=== PATIENT | male | born 1970 | race Caucasian/White ===

== ENCOUNTER 2019-05-15 21:10 | Inpatient (IN) | payer MEDICAID ==
[~2019-05-15] VITALS: Ht 162.6 cm; Wt 80.7 kg
[2019-05-15 21:30] VITALS: BP 129/85
--- NOTE | 2019-05-15 21:54 | NUR ---
AMBULATED TO [facility].
--- NOTE | 2019-05-15 21:54 | NUR ---
PT AMBULATED TO CHAIR D
--- NOTE | 2019-05-15 21:59 | NUR ---
PT BIB SELF C/O FLU LIKE SYMPTOMS X1 WEEK. PT REPORTS BODY ACHES AT 7/10, SINUS PRESSURE, MOIST/PRODUCTIVE COUGH WITH THIN WHITE SPUTUM, AND SUBJECTIVE FEVER. PT CURRENT TEMP 98.0. RR EVEN AND NON-LABORED, BREATH SOUDS CLEAR THROUGHOUT. VSS. PMH:DENIES
--- NOTE | 2019-05-15 22:27 | NUR ---
JULIA MENDES AT CHAIRSIDE
[2019-05-15] MEDS ORDERED: ALBUTEROL SULFATE/IPRATROPIU 3 ML SOL IH ONE (22:30)
[2019-05-15] MEDS ORDERED: predniSONE 20 MG TAB PO ONE (22:30)
--- NOTE | 2019-05-15 22:34 | NUR ---
PT TO X-RAY AT THIS TIME
--- NOTE | 2019-05-15 22:37 | NUR ---
PT RETURNED FORM X-RAY
--- NOTE | 2019-05-15 22:39 | NUR ---
RT CALLED FOR BREATHING TX, RETAIL SALES ASSOCIATE [employer] NOTIFIED THAT NOT ENOUGH PREDNISONE IS LOADED IN OMNICEL
--- NOTE | 2019-05-15 22:56 | NUR ---
PT MOVED TO BED 6
--- NOTE | 2019-05-15 22:59 | NUR ---
PT MOVED TO BED 6, PLACED ON O2 MONITOR AND LODGING FACILITIES ATTENDANT. O2 AT 95% ON ROOM AIR, LODGING FACILITIES ATTENDANT SHOWS SINUS TACH. REPORT GIVEN TO RONY BAUGH.
[2019-05-15] MEDS ORDERED: NACL 0.9% 2,000 ML IV ONE (23:00)
--- NOTE | 2019-05-15 23:29 | NUR ---
INSERTED RAC 20 GAUGE IV. NORMAL SALINE 2,000ML RUNNING WIDE OPEN.
[2019-05-15 23:39] LABS: BASOPHILS # (AUTO) 0.1 K/uL (0.00-0.22); EOSINOPHILS # (AUTO) 0.2 K/uL (0-0.4); EOSINOPHILS % (AUTO) 1.8 % (0.0-4.0); HEMATOCRIT 40.6 % (36-52); HEMOGLOBIN 13.9 g/dL (12.0-18.0); LYMPHOCYTES # (AUTO) 2.4 K/uL (2.0-11.5); LYMPHOCYTES % (AUTO) 24.9 % (20.5-51.1); MEAN CORPUSCULAR HEMOGLOBIN 31 pg (27-31); MEAN CORPUSCULAR HGB CONC 34 g/dL (33-37); MEAN CORPUSCULAR VOLUME 89.3 fL (80-94); MONOCYTES # (AUTO) 1.2 K/uL (0.8-1.0); MONOCYTES % (AUTO) 12.6 % (1.7-9.3); NEUTROPHILS # (AUTO) 5.8 K/uL (1.8-7.7); NEUTROPHILS % (AUTO) 59.7 % (42.2-75.2); PLATELET COUNT (AUTO) 586 K/uL (140-450); RED BLOOD CELL COUNT(AUTO) 4.55 MIL/uL (4.20-6.10); RED CELL DISTRIBUTION WIDTH 12.4 % (11.6-13.7); WHITE BLOOD COUNT (AUTO) 9.7 K/uL (4.8-10.8)
[2019-05-15 23:40] LABS: APPEARANCE,URINE CLEAR (CLEAR); BILIRUBIN,URINE NEGATIVE (NEGATIVE); BLOOD, URINE NEGATIVE (NEGATIVE); COLOR,URINE YELLOW (YELLOW); LEUKOCYTE ESTERASE ,URINE NEGATIVE (NEGATIVE); NITRITE, URINE NEGATIVE (NEGATIVE); UGLUCOSE 2+ (NEGATIVE)
--- NOTE | 2019-05-15 23:42 | NUR ---
ERMD AT BEDSIDE EVALUATING PATIENT.
[2019-05-15] MEDS ORDERED: AZITHROMYCIN 500 MG in DEXTROSE 5% 250 ML IV ONE (23:45)
[2019-05-15] MEDS ORDERED: cefTRIAXone 1,000 MG VIAL ONE (23:53)
[2019-05-15] MEDS ORDERED: AZITHROMYCIN 500 MG INJ VIAL IV ONE (23:53)
[2019-05-15 23:55] LABS: PROTHROMBIN TIME 10.7 secs (10.8-13.4)
[2019-05-16 00:11] LABS: ANION GAP 12.2 (8-16); CARBON DIOXIDE 30.4 mmol/L (21-32); POTASSIUM 3.6 mmol/L (3.5-5.1)
[2019-05-16 00:12] LABS: ALBUMIN 2.4 g/dL (3.4-5.0); TOTAL BILIRUBIN 0.3 mg/dL (0.0-1.0)
[2019-05-16 00:33] LABS: RBC,URINE NONE SEEN /HPF (0-5); WBC,URINE 0-5 /HPF (0-5)
[2019-05-16] MEDS ORDERED: ONDANSETRON 4 MG/2 ML VIAL IM/IVP PRN (01:25)
[2019-05-16] MEDS ORDERED: ALBUTEROL SULFATE/IPRATROPIU 3 ML SOL IH PRN (01:25)
[2019-05-16] MEDS ORDERED: DOCUSATE SODIUM 100 MG GELCAP PO PRN (01:25)
[2019-05-16] MEDS ORDERED: ACETAMINOPHEN 325 MG TAB PO PRN (01:25)
--- NOTE | 2019-05-16 01:38 | NUR ---
DR. HADDAD AT BEDSIDE EVALUATING PATIENT.
[2019-05-16 01:56] LABS: BARBITURATE, URINE NEG. ng/ml (NEG <=200); BENZODIAZEPINE, URINE NEG. ng/mL (NEG <=200); CANNABINOID, URINE NEG. ng/mL (NEG <=50); COCAINE, URINE NEG. ng/mL (NEG <=300); OPIATE, URINE NEG. ng/mL (NEG <=2000); PHENCYCLIDINE SCREEN,URINE NEG. ng/mL (NEG <=25)
[2019-05-16 02:08] LABS: MAGNESIUM 1.8 mg/dL (1.8-2.4); THYROID STIMULATING HORMONE 1.15 uIU/mL (0.34-3.74)
--- NOTE | 2019-05-16 02:55 | NUR ---
Patient will be admitted to care of DR. BLANTON. Admited to MED SURG 113. . Belongings list completed. Report to .
[2019-05-16 03:05] VITALS: BP 123/72
--- NOTE | 2019-05-16 03:05 | NUR ---
RECIEVED PT AAOX4 , FROM ER / WHEELCHAIR , NID , IV SITE INTACT AND PATENT , WALKS TO BED . ADMISSION ASSESSMENT DONE . MRSA SPECIMEN SENT TO LAB . ON SAFETY PRECAUTION PROTOCOL - CALL LIGHT WITHIN REACH . POC DISCUSSED AND VERBALIZE UNDERSTANDING . WILL CONT. TO MONITOR.
[2019-05-16] MEDS: NACL 0.9% 1,000 ML IV SCH ×2 (03:20→19:10)
[2019-05-16] MEDS ORDERED: DEXTROSE 50% 50 ML SYR IVP PRN (04:05)
--- NOTE | 2019-05-16 05:50 | NUR ---
LATEST T 476 - BOUCHRA INFORM - GIVE 10 U HUMALOG SQ NOW ORDERED .WILL CONT. TO MONITOR.
[2019-05-16] MEDS: BLOOD GLUCOSE MONITORING 1 DEV DEV FS SCH ×4 (05:59→20:33)
[2019-05-16] MEDS: INSULIN LISPRO SLIDING SCALE 100 UNITS/ML VIAL SUBQ PRN ×5 (06:03→20:33)
--- NOTE | 2019-05-16 06:03 | NUR ---
HUMALOG 10 U SQ GIVEN . ORDERED. WILL CONT. TO MONITOR.
--- NOTE | 2019-05-16 06:07 | NUR ---
REG.INSULIN SQ STAT GIVEN ORDERED . WILL CONT. TO MONITOR.
[2019-05-16] MEDS ORDERED: INSULIN REGULAR, HUMAN 100 UNIT/ML VIAL IVP SCH (06:30)
[2019-05-16 07:12] LABS: BASOPHILS % (AUTO) 0.2 % (0.0-2.0); HEMATOCRIT 38.1 % (36-52); HEMOGLOBIN 12.9 g/dL (12.0-18.0); LYMPHOCYTES % (AUTO) 10.7 % (20.5-51.1); MEAN CORPUSCULAR HEMOGLOBIN 30 pg (27-31); MEAN CORPUSCULAR HGB CONC 34 g/dL (33-37); MEAN CORPUSCULAR VOLUME 89.7 fL (80-94); MONOCYTES # (AUTO) 0.3 K/uL (0.8-1.0); MONOCYTES % (AUTO) 3.2 % (1.7-9.3); NEUTROPHILS % (AUTO) 85.9 % (42.2-75.2); PLATELET COUNT (AUTO) 534 K/uL (140-450); RED BLOOD CELL COUNT(AUTO) 4.25 MIL/uL (4.20-6.10); RED CELL DISTRIBUTION WIDTH 12.4 % (11.6-13.7); WHITE BLOOD COUNT (AUTO) 9.3 K/uL (4.8-10.8)
[2019-05-16 07:21] LABS: CHOL/HDL RATIO 3.8 (1-4.5); MAGNESIUM 1.8 mg/dL (1.8-2.4); PHOSPHORUS 3.6 mg/dL (2.5-4.9)
--- NOTE | 2019-05-16 07:25 | NUR ---
RECEIVED BEDSIDE REPORT FROM NIGHTSHIFT NURSE. PT ASLEEP IN BED UPON ARRIVAL. RESPIRATIONS EVEN AND UNLABORED WITH NO SOB OR RESPIRATORY DISTRESS. ABLE TO MAKE NEEDS KNOWN. SKIN WARM AND DRY TO TOUCH. IV SITE IN L HAND 20G IS CLEAN, DRY, AND INTACT. SAFETY MEASURES IN PLACE. WILL CONTINUE TO MONITOR.
--- NOTE | 2019-05-16 07:25 | NUR ---
ENDORSE TO AM SHIFT . PT - STABLE - W/ LATEST HGT 43O.
[2019-05-16 08:00] VITALS: BP 122/76
--- NOTE | 2019-05-16 08:40 | NUR ---
PATIENT HAS BEEN SCREENED AND CATEGORIZED HIGH NUTRITION RISK. PATIENT WILL BE SEEN WITHIN 1-2 DAYS OF ADMISSION. 05/16/19-05/17/[address]
[2019-05-16] MEDS: LACTOBACILLUS RHAMNOSUS GG 1 EACH CAP PO SCH (08:44)
[2019-05-16] MEDS: OSELTAMIVIR PHOSPHATE 75 MG CAP PO SCH ×2 (08:44→20:29)
[2019-05-16] MEDS: NICOTINE TRANSD SYS 14 MG/24 HR PATCH TD SCH (08:46)
--- NOTE | 2019-05-16 08:46 | NUR ---
ADMINISTERED SCHED MED PRESCRIBED PER MD ORDER. PT TOLERATED WELL. MEDICATION EDUCATION PERFORMED. PT REFUSED NICOTINE PATCH. PT STATED HE WOULD RATHER "BLOW SMOKE" THAN USE NICOTINE PATCH. EDUCATED PT ON PURPOSE OF NICOTINE PATCH. PT VERBALIZED UNDERSTANDING BUT STILL DID NOT WANT IT. SAFETY MEASURES IN PLACE. WILL CONTINUE TO MONITOR.
[2019-05-16 09:14] LABS: ANION GAP 17.3 (8-16); CARBON DIOXIDE 24.4 mmol/L (21-32); CREATININE 1.2 mg/dL (0.7-1.3); POTASSIUM 4.7 mmol/L (3.5-5.1)
--- NOTE | 2019-05-16 09:45 | NUR ---
RECIEVED CALL FROM LAB WITH A CRITICAL RESULT. PT BLOOD GLUCOSE IS 481. MADE AWARE AND CARRIED OUT ORDERS Addendum: 05/16/19 at 1055 by Yohana Yancey RN RECEIVED CALL AT [phone] NOT AT [phone]
--- NOTE | 2019-05-16 10:43 | NUR ---
ADMINISTERED SCHED MED PRESCRIBED PER MD ORDER. PT TOLERATED WELL. MEDICATION EDUCATION PERFORMED. PT VERBALIZED UNDERSTANDING. SAFETY MEASURES IN PLACE. WILL CONTINUE TO MONITOR.
--- NOTE | 2019-05-16 12:30 | NUR ---
PT BLOOD SUGAR WAS 481. DR MADE AWARE AND GAVE ORDER TO GIVE 15 UNITS OF INSULIN. PT TOLERATED WELL. WILL CONTINUE TO MONITOR
--- NOTE | 2019-05-16 14:45 | NUR ---
PT REQUESTED TO TAKE A SHOWER. PT IV SITE COVERED WITH DRESSING. GATHERED SHOWER SUPPLIES FOR PT. ASSISTED PT INTO SHOWER. PT TOLERATED WELL. ASSISTED PT BACK INTO BED, REMOVED DRESSING PROTECTION OVER IV SITE, AND RECONNECTED PT TO IV FLUIDS. PT TOLERATED WELL. SAFETY MEASURES IN PLACE. WILL CONTINUE TO MONITOR.
[2019-05-16 16:00] VITALS: BP 125/69
--- NOTE | 2019-05-16 16:10 | NUR ---
05/16/19 RD INITIAL ASSESSMENT COMPLETED PLEASE REFER TO NUTRITION ASSESSMENT UNDER CARE ACTIVITY FOR ESTIMATED NUTRITIONAL NEEDS. 1. CONTINUE CCHO 60 GM DIET TOLERATED 2. RD PROVIDED DM MANAGEMENT NUTRITION EDUCATION 3. RD TO FOLLOW-UP 3-5 DAYS, MODERATE RISK KRAIG RIGGS RD
--- NOTE | 2019-05-16 16:30 | NUR ---
PT BLOOD SUGAR WAS 175. PT WILL RECEIVE 3 UNITS OF INSULIN. SAFETY MEASURES IN PLACE. WILL CONTINUE TO MONITOR
--- NOTE | 2019-05-16 16:32 | NUR ---
Colorist Dyer Note: Basic Screen: Yes High Risk DC Screen Brownlee: NATHANIEL Sanchez Pre-Admission Living Arrangements: Lives with Other Prior ADL Independent Current Home Health Name/Tel: N/A Current DME/02 Name/Tel: N/A Current Hospice Name/Tel: N/A Current Dialysis Name/Tel: N/A Advance Directive No - REFUSED Physician Orders for Life Sustaining Treatment Form No Patient/Family Have Educational Needs No Information Taught: Advance Directive Person Taught: Patient Teaching Tools: Verbal Factors Affecting Learning: None Participation Level: Refused Evaluation: Verbalizes Understanding Discipline: Case Mgt/Social Svcs Tentative Discharge Plan/Destination: No Needs Identified Will require assistance post discharge: No Referred to [facility] Laboratory Supervisor: No Tentative Discharge Plan Summary: Patient is a 49-year-old male admitted for pneumonia and influenza. Patient has no significant PMHX. Patient was admitted from home where he lives with his aunt. 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 SW offered substance abuse resources but patient refused. Patient's tentative plan after discharge is to return home. No further needs identified. Signature: NIRALI Wood Date: May 16, 2019 Time: 16:31
--- NOTE | 2019-05-16 17:45 | NUR ---
PT ASLEEP IN BED. RESPONSIVE TO VERBAL AND TACTILE STIMULI. RESPIRATIONS EVEN AND UNLABORED WITH NO SOB OR RESPIRATORY DISTRESS. ABLE TO MAKE NEEDS KNOWN. SKIN WARM AND DRY TO TOUCH. SAFETY MEASURES IN PLACE. WILL CONTINUE TO MONITOR.
--- NOTE | 2019-05-16 18:05 | NUR ---
PT RESTING IN BED. RESPIRATIONS EVEN AND UNLABORED WITH NO SOB OR RESPIRATORY DISTRESS. ABLE TO MAKE NEEDS KNOWN. SKIN WARM AND DRY TO TOUCH. SAFETY MEASURES IN PLACE. WILL CONTINUE TO MONITOR.
--- NOTE | 2019-05-16 19:23 | NUR ---
GAVE BEDSIDE REPORT FROM NIGHTSHIFT NURSE. PT RESTING IN BED. RESPIRATIONS EVEN AND UNLABORED WITH NO SOB OR RESPIRATORY DISTRESS. ABLE TO MAKE NEEDS KNOWN. SKIN WARM AND DRY TO TOUCH. SAFETY MEASURES IN PLACE. PT IS STABLE.
--- NOTE | 2019-05-16 19:25 | NUR ---
RECEIVED PT ON BED, AAOX4, DENIES ANY PAIN, NO SOB NOTED, IVF INFUSING WELL, PLAN OF CARE DISCUSSED, MAINTAINED ON DROPLET PRECAUTION, CALL LIGHT WITHIN REACH.
[2019-05-16] MEDS ORDERED: VANCOMYCIN PER PHARMACY MC PRN (20:10)
[2019-05-16] MEDS ORDERED: VANCOMYCIN 1,000 MG VIAL ONE (20:56)
[2019-05-16] MEDS ORDERED: VANCOMYCIN 1GM/DEXT 5% PREMIX 200 ML IV SCH (21:00)
[2019-05-16] MEDS ORDERED: AZITHROMYCIN 250 MG TAB PO SCH (21:00)
[2019-05-16] MEDS ORDERED: INSULIN LANTUS 100 UNITS/ML 10 ML VIAL SUBQ SCH (21:00)
--- NOTE | 2019-05-16 21:00 | NUR ---
BLOOD SUGAR CHECKED WITH 299 RESULT, COVERAGE GIVEN, DUE TAMIFLU ADMINISTERED, ALL NEEDS ATTENDED.
--- NOTE | 2019-05-16 23:30 | NUR ---
PT EASILY AROUSABLE, VITAL SIGNS STABLE, DENIES ANY PAIN, NO SOB NOTED, OCCASIONAL COUGH NOTED, PROVIDED SPECIMEN CUP TO COLLECT SPUTUM FOR TEST, IVF INFUSING WELL, CONTINUE TO MONITOR CLOSELY.
[2019-05-17] VITALS: BP 114/80
--- NOTE | 2019-05-17 04:00 | NUR ---
SEEN PT SLEEPING, NO SIGNS OF DISTRESS, VISIBLE CHEST RISE AND FALL, MONITORED CLOSELY.
[2019-05-17] MEDS: INSULIN LISPRO SLIDING SCALE 100 UNITS/ML VIAL SUBQ PRN ×4 (05:45→21:08)
--- NOTE | 2019-05-17 05:45 | NUR ---
PT ABLE TO EXPECTORATE SPUTUM BT MIXED WITH SALIVA, PROVIDED ANOTHER CONTAINER FOR SPUTUM COLLECTION, BLOOD SUGAR CHECKED WITH 171 RESULT, COVERAGE GIVEN, PT IN STABLE CONDITION THE WHOLE SHIFT, MONITORED CLOSELY.
[2019-05-17] MEDS ORDERED: INFLUENZA VACCINE QUAD 0.5 ML SYR IMVAC PRN (05:50)
[2019-05-17] MEDS: BLOOD GLUCOSE MONITORING 1 DEV DEV FS SCH ×4 (06:32→21:25)
--- NOTE | 2019-05-17 07:16 | NUR ---
PT AWAKE, NO SIGNS OF DISTRESS, REPORT GIVEN TO LUPIS DOVER FOR CONTINUITY OF CARE.
--- NOTE | 2019-05-17 07:17 | NUR ---
RECEIVED REPORT FROM NIGHT NURSE. PT IN STABLE CONDITION, AWAKE, AAOX4, NO DISTRESS NOTED, DENIES PAIN. RESPIRATIONS EVEN AND UNLABORED ON ROOM AIR. IV IN PLACE R AC 20G PATENT AND ASYMPTOMATIC INFUSING PER ORDER. SKIN INTACT. PT IS AMBULATORY. REGULAR DIET. SAFETY MEASURES IN PLACE. CALL LIGHT WITHIN REACH, BED IN LOW POSITION. WILL CONTINUE TO MONITOR.
[2019-05-17 07:33] LABS: CREATININE 0.9 mg/dL (0.6-1.3); POTASSIUM 3.9 mmol/L (3.5-5.1)
[2019-05-17 07:35] LABS: ANION GAP 10.6 (8-16); CARBON DIOXIDE 29.3 mmol/L (21-32)
[2019-05-17 07:36] LABS: MAGNESIUM 1.7 mg/dL (1.8-2.4); PHOSPHORUS 3.7 mg/dL (2.5-4.9)
[2019-05-17 07:40] LABS: BASOPHILS # (AUTO) 0.1 K/uL (0.00-0.22); BASOPHILS % (AUTO) 0.9 % (0.0-2.0); EOSINOPHILS # (AUTO) 0.2 K/uL (0-0.4); EOSINOPHILS % (AUTO) 2.2 % (0.0-4.0); HEMATOCRIT 39.5 % (36-52); HEMOGLOBIN 13.6 g/dL (12.0-18.0); LYMPHOCYTES # (AUTO) 3.1 K/uL (2.0-11.5); LYMPHOCYTES % (AUTO) 31.5 % (20.5-51.1); MEAN CORPUSCULAR HEMOGLOBIN 31 pg (27-31); MEAN CORPUSCULAR HGB CONC 34 g/dL (33-37); MEAN CORPUSCULAR VOLUME 89.5 fL (80-94); MONOCYTES % (AUTO) 10.3 % (1.7-9.3); NEUTROPHILS # (AUTO) 5.4 K/uL (1.8-7.7); NEUTROPHILS % (AUTO) 55.1 % (42.2-75.2); PLATELET COUNT (AUTO) 530 K/uL (140-450); RED BLOOD CELL COUNT(AUTO) 4.42 MIL/uL (4.20-6.10); RED CELL DISTRIBUTION WIDTH 12.5 % (11.6-13.7); WHITE BLOOD COUNT (AUTO) 9.8 K/uL (4.8-10.8)
[2019-05-17 08:00] VITALS: BP 119/82
[2019-05-17] MEDS: VANCOMYCIN 1,000 MG in NACL 0.9% 250 ML IV SCH ×2 (08:57→20:30)
[2019-05-17] MEDS: LACTOBACILLUS RHAMNOSUS GG 1 EACH CAP PO SCH (08:57)
[2019-05-17] MEDS: OSELTAMIVIR PHOSPHATE 75 MG CAP PO SCH ×2 (08:57→20:30)
[2019-05-17] MEDS: NICOTINE TRANSD SYS 14 MG/24 HR PATCH TD SCH (08:59)
--- NOTE | 2019-05-17 09:30 | NUR ---
MEDICATIONS ADMINISTERED PER ORDER. PT TOLERATED WELL, NO DISTRESS NOTED. WILL CONTINUE TO MONITOR.
--- NOTE | 2019-05-17 10:00 | NUR ---
GAVE REPORT TO RAY FOR CONTINUITY OF CARE.
--- NOTE | 2019-05-17 10:07 | NUR ---
RECEIVED BEDSIDE REPORT FROM MYRA LARA AWAKE IN BED PT APPEARS STABLE AND IN NO APPARENT DISTRESS. ALL SAFETY MEASURES ARE IN PLACE. PT IV INFILTRATED WILL START A NEW IV. INTRODUCED MYSELF TO THE PATIENT AND INFORMED HIM I WILL BE HERE TO ANSWER ANY QUESTIONS AND HELP HIM WITH ANY OF HIS NEEDS.
--- NOTE | 2019-05-17 11:16 | NUR ---
DC PLANN[age] YRS OLD MALE PATIENT WAS ADMITTED FROM HOME WITH A DX OF PNEUMONIA AND INFLUENZA B+ . CXRAY SHOWED RT UPPER LOBE PNEUMONIA , INFLUENZA A(-) ,STARTED TAMIFLU 75MG BID , ROCEPHIN IV AND INITIATE RT PROTOCOL . DC PLAN TO GO HOME WHEN STABLE CALLED GURDEEP WHEELER AT [facility] [phone] STATED WE ARE CONTRACTED NO NEED TO SEND THE POST STABILIZATION FORM AND AUTHORIZED FOR PT TO STAY AT [facility]
[2019-05-17] MEDS: NACL 0.9% 1,000 ML IV SCH ×2 (11:50→21:02)
--- NOTE | 2019-05-17 12:58 | NUR ---
fingerstick glucose 365 administered 12 units humalog per protocol subq right upper arm. educated pt on medication and sideeffects informed pt about signs and symptoms of hypoglycemia. will continue to monitor
--- NOTE | 2019-05-17 13:46 | NUR ---
FREQUENT ROUNDING ON PT PT APPEARS STABLE AND IN NO APPARENT DISTRESS. ALL SAFETY MEASURES ARE IN PLACE
--- NOTE | 2019-05-17 15:43 | NUR ---
FREQUENT ROUNDING ON PT PT APPEARS STABLE AND IN NO APPARENT DISTRESS. ALL SAFETY MEASURES ARE IN PLACE
[2019-05-17 16:45] VITALS: BP 119/74
[2019-05-17] MEDS ORDERED: metFORMIN 500 MG TAB PO SCH (17:23)
--- NOTE | 2019-05-17 17:43 | NUR ---
FREQUENT ROUNDING ON PT PT AWAKE IN BED PT APPEARS STABLE AND IN NO APPARENT DISTRESS. ALL SAFETY MEASURES ARE IN PLACE.
--- NOTE | 2019-05-17 19:27 | NUR ---
RECEIVED PATIENT IN STABLE CONDITION FROM AM SHIFT FOR CONTINUITY OF CARE. TELE PATIENT. IS AT BEDSIDE. RESPIRATIONS EVEN, UNLABORED. DOUBLE LUMEN PICC TO RIGHT UPPER ARM INTACT, IV FLUIDS INFUSING WELL. NO C/O PAIN. NO S/SX ACUTE DISTRESS. ISOLATION PRECAUTIONS OBSERVED. CALL LIGHT WITHIN REACH. WILL CONTINUE TO MONITOR. Addendum: 05/17/19 at 1934 by Naz Alvarez RN IV SITE TO LEFT FOREARM 22G, NOT PICC.
--- NOTE | 2019-05-17 19:28 | NUR ---
ENDORSED PT TO PM RN PT AWAKE IN BED IVF INFUSING IV SITE PATENT AND SHOWS NO SIGNS OF INFILTRATION OR INFLAMMATION. ALL SAFETY MEASURES ARE IN PLACE .
--- NOTE | 2019-05-17 21:25 | NUR ---
IV SITE TO LEFT FOREARM INFILTRATED. REMOVED IV WITH CANNULA INTACT. NO BLEEDING NOTED. ELEVATED EXTREMITY FOR COMFORT. NEW IV STARTED IN RIGHT HAND 24G USING ASEPTIC TECHNIQUE WITH GOOD BLOOD RETURN. NO C/O PAIN. NO S/SX ACUTE DISTRESS NOTED. CALL LIGHT WITHIN REACH. WILL CONTINUE TO MONITOR.
--- NOTE | 2019-05-17 23:10 | NUR ---
PATIENT CONTINUES IN STABLE CONDITION. NO C/O PAIN. NO S/SX ACUTE DISTRESS. DUE MEDS GIVEN. CALL LIGHT WITHIN REACH. WILL CONTINUE TO MONITOR.
[2019-05-18] VITALS: BP 110/71
--- NOTE | 2019-05-18 01:00 | NUR ---
ASLEEP AND IN STABLE CONDITION. NO C/O PAIN. NO S/SX ACUTE DISTRESS. CALL LIGHT WITHIN REACH. WILL CONTINUE TO MONITOR.
--- NOTE | 2019-05-18 03:06 | NUR ---
MADE ROUNDS. PATIENT ASLEEP AND IN STABLE CONDITION. NO C/O PAIN. NO S/SX ACUTE DISTRESS. CALL LIGHT WITHIN REACH. WILL CONTINUE TO MONITOR.
--- NOTE | 2019-05-18 05:21 | NUR ---
PATIENT ASLEEP AND IN STABLE CONDITION. NO C/O PAIN. NO S/SX ACUTE DISTRESS. ISOLATION PRECAUTIONS OBSERVED BY ALL STAFF. CALL LIGHT WITHIN REACH. WILL CONTINUE TO MONITOR.
[2019-05-18] MEDS: INSULIN LISPRO SLIDING SCALE 100 UNITS/ML VIAL SUBQ PRN ×2 (06:34→12:10)
[2019-05-18] MEDS: BLOOD GLUCOSE MONITORING 1 DEV DEV FS SCH ×2 (06:35→11:35)
--- NOTE | 2019-05-18 07:15 | NUR ---
ENDORSED PATIENT IN STABLE CONDITION TO AM SHIFT FOR CONTINUITY OF CARE.
--- NOTE | 2019-05-18 07:20 | NUR ---
RECEIVED PATIENT FROM MANAGER STRATEGY & ACCOUNT NURSEALLEGRA FOR CONTINUITY OF CARE. PATIENT IS AAOX4. RESPIRATIONS EVEN AND UNLABORED, ROOM AIR. INTERMITTENT NONPRODUCTIVE COUGH. ON DROPLET PRECAUTIONS. VISIBLE CHEST RISE NOTED. DENIES CHEST PAIN. SKIN WARM, DRY, AND INTACT. RIGHT HAND G24 RUNNING NS AT 60 ML/HR. IV FLUSHING WELL. PATENT AND INTACT. UNIVERSAL FALL PRECAUTION. BED IN LOW POSITION. CALL LIGHT IS WITHIN REACH. WILL CONTINUE TO MONITOR
[2019-05-18 07:51] LABS: MAGNESIUM 1.8 mg/dL (1.8-2.4); PHOSPHORUS 4.4 mg/dL (2.5-4.9)
[2019-05-18 08:00] VITALS: BP 117/81
[2019-05-18] MEDS ORDERED: metFORMIN 500 MG TAB PO SCH (08:00)
[2019-05-18 08:29] LABS: BASOPHILS # (AUTO) 0.2 K/uL (0.00-0.22); BASOPHILS % (AUTO) 2.5 % (0.0-2.0); EOSINOPHILS # (AUTO) 0.2 K/uL (0-0.4); EOSINOPHILS % (AUTO) 2.4 % (0.0-4.0); HEMOGLOBIN 15.2 g/dL (12.0-18.0); LYMPHOCYTES # (AUTO) 3.1 K/uL (2.0-11.5); LYMPHOCYTES % (AUTO) 31.7 % (20.5-51.1); MEAN CORPUSCULAR HEMOGLOBIN 30 pg (27-31); MEAN CORPUSCULAR HGB CONC 34 g/dL (33-37); MEAN CORPUSCULAR VOLUME 89.6 fL (80-94); MONOCYTES # (AUTO) 1.1 K/uL (0.8-1.0); MONOCYTES % (AUTO) 11.2 % (1.7-9.3); NEUTROPHILS # (AUTO) 5.1 K/uL (1.8-7.7); NEUTROPHILS % (AUTO) 52.2 % (42.2-75.2); PLATELET COUNT (AUTO) 571 K/uL (140-450); RED BLOOD CELL COUNT(AUTO) 5.02 MIL/uL (4.20-6.10); RED CELL DISTRIBUTION WIDTH 12.6 % (11.6-13.7); WHITE BLOOD COUNT (AUTO) 9.8 K/uL (4.8-10.8)
[2019-05-18 08:47] LABS: ANION GAP 9.9 (8-16); CREATININE 1.1 mg/dL (0.6-1.3); POTASSIUM 3.9 mmol/L (3.5-5.1)
[2019-05-18] MEDS: NICOTINE TRANSD SYS 14 MG/24 HR PATCH TD SCH (09:00)
--- NOTE | 2019-05-18 09:36 | NUR ---
GIVEN MORNING MEDICATIONS PO. VANCOMYCIN VIA IVPB. CHANGED NS BAG. EXPLAINED TO PATIENT MEDS. PATIENT VERBALIZED UNDERSTANDING. BED IN LOW POSITION. CALL LIGHT IS WITHIN REACH
[2019-05-18] MEDS: OSELTAMIVIR PHOSPHATE 75 MG CAP PO SCH (09:37)
[2019-05-18] MEDS: LACTOBACILLUS RHAMNOSUS GG 1 EACH CAP PO SCH (09:37)
[2019-05-18] MEDS: VANCOMYCIN 1,000 MG in NACL 0.9% 250 ML IV SCH (09:38)
--- NOTE | 2019-05-18 10:20 | NUR ---
MADE ROUNDS. PATIENT IS AWAKE. WATCHING TV. PATIENT DENIES PAIN, CHEST PAIN. INTERMITTENT NONPRODUCTIVE COUGH NOTED. BED IN LOW POSITION. CALL LIGHT IS WITHIN REACH. DROPLET PRECAUTION IN PLACE
[2019-05-18] MEDS ORDERED: LACT10CA PO (10:32)
[2019-05-18] MEDS ORDERED: TAM75 PO (10:32)
[2019-05-18] MEDS ORDERED: LEVO750T2 PO (10:32)
[2019-05-18] MEDS ORDERED: PSYL0.5216 PO (10:32)
[2019-05-18] MEDS ORDERED: METF500T PO (10:32)
[2019-05-18] MEDS ORDERED: GLUC-805 FS (10:32)
[2019-05-18] MEDS ORDERED: DOCU-299 PO (10:32)
[2019-05-18] MEDS ORDERED: BLOO1EAC40 MC (10:34)
[2019-05-18] MEDS ORDERED: LANC-947 MC (10:34)
--- NOTE | 2019-05-18 11:35 | NUR ---
BLOOD GLUCOSE CHECK: 213. WILL GIVE INSULIN
--- NOTE | 2019-05-18 11:58 | NUR ---
SPOKED WITH DR. FRANCIS TO ORDER GLUCOMETER BECAUSE TEST STRIPS IS ONLY ORDERED. DR. FRANCIS WILL ORDER IT.
--- NOTE | 2019-05-18 12:00 | NUR ---
EDUCATED PATIENT HOW TO CHECK BLOOD SUGAR. DEMONSTRATED HOW TO INSERT THE STRIP TO THE MACHINE, CLEAN THE FINGER, AND HOW TO POKE PATIENT WITH LANCET. PATIENT RETURNED DEMONSTRATION WELL.
--- NOTE | 2019-05-18 12:13 | NUR ---
GIVEN 5 UNITS OF INSULIN FOR BLOOD GLUCOSE 213. INJECTED IN THE RIGHT UPPER ARM. EXPLAINED TO PATIENT MED. PATIENT VERBALIZED UNDERSTANDING. PATIENT TOLERATED WELL.
[2019-05-18 12:29] VITALS: BP 117/81
--- NOTE | 2019-05-18 12:41 | NUR ---
GIVEN FLU SHOT IN THE LEFT UPPER ARM. EXPLAINED TO PATIENT THE FLU SHOT. PATIENT VERBALIZED UNDERSTANDING. PATIENT TOLERATED WELL. BED IN LOW. CALL LIGHT IS WITHIN REACH. WILL CONTINUE TO MONITOR.
--- NOTE | 2019-05-18 13:05 | NUR ---
GIVEN DISCHARGE INSTRUCTIONS. EXPLAINED PATIENT THAT HE NEEDS TO APPLICATION INTEGRATION ENGINEER HIS PRESCRIBED MEDS AT THE [facility] HE PREFERRED. EDUCATED THAT HE NEEDS TO MAKE APPOINTMENT TO [facility]. PATIENT VERBALIZED UNDERSTANDING. PATIENT SIGNED DISCHARGED PAPER WORKS.
--- NOTE | 2019-05-18 13:08 | NUR ---
DISCONTINUED IV. MINIMAL BLEEDING. SECURED WITH 2X2 AND TAPE. REMOVED ID BAND.
--- NOTE | 2019-05-18 13:10 | NUR ---
DISCHARGED PATIENT ON FOOT ACCOMPANIED BY . PATIENT IS IN STABLE CONDITION. DENIES PAIN, CHEST PAIN, FEVER. BELONGINGS CHECKED.
== END 2019-05-18 13:00 | disposition home or self-care (01) | DRG 720 ==
LOC: MED 21:10 → MTU 05-16 01:22
PROVIDERS: ADMIT General Practice; ATTEND General Practice
DX: A41.9 Sepsis, unspecified organism (principal); E43 Unspecified severe protein-calorie malnutrition; J10.08 Influenza due to other identified influenza virus with other specified pneumonia; J15.9 Unspecified bacterial pneumonia; M94.0 Chondrocostal junction syndrome [Tietze]; F17.210 Nicotine dependence, cigarettes, uncomplicated; E11.9 Type 2 diabetes mellitus without complications; E66.9 Obesity, unspecified; F15.10 Other stimulant abuse, uncomplicated; Z68.30 Body mass index [BMI] 30.0-30.9, adult; Z90.49 Acquired absence of other specified parts of digestive tract; Z71.51 Drug abuse counseling and surveillance of drug abuser; Z71.6 Tobacco abuse counseling; Z23 Encounter for immunization
CPT/HCPCS: 36415; 71045; 80048; 80053; 80202; 80305; 81001; 82948; 83036; 83605; 83735; 83880; 84100; 84134; 84443; 84484; 85025; 85610; 87040; 87081; 87086; 87804; 93005; 94640; 96361; 96365; 96367; 99285; J0456; J0696; J1815; J3370; J7030; J7060; J7512; J7620; Q0092

== ENCOUNTER 2021-05-08 15:50 | Emergency (ER) | payer MEDICAID ==
[~2021-05-08] VITALS: Ht 165.1 cm; Wt 86.2 kg
[~2021-05-08 15:50] MED LIST: BLOO1EAC40 MC; DOCU-299 PO; GLUC-805 FS; LACT10CA PO; LANC-947 MC; LEVO750T2 PO; METF500T PO; PSYL0.5216 PO; TAM75 PO
[2021-05-08 16:13] VITALS: BP 119/71
--- NOTE | 2021-05-08 16:43 | NUR ---
C/O DIABETIC WOUND RIGHT FOOT X 4 DAYS. BLOOD SUGAR 338 AT THIS TIME. PMH: DM
[2021-05-08] MEDS ORDERED: KETOROLAC 60 MG/2 ML VIAL IM ONE (16:55)
[2021-05-08] MEDS ORDERED: IBUP-2213 PO (17:00)
[2021-05-08] MEDS ORDERED: CEPH-588 PO (17:00)
[2021-05-08] MEDS ORDERED: ACET-8386 PO (17:00)
--- NOTE | 2021-05-08 17:41 | NUR ---
Patient discharged with v/s stable. Written and verbal after care instructions given and explained. Patient alert, oriented and verbalized understanding of instructions. Ambulatory with steady gait. All questions addressed prior to discharge. ID band removed. Patient advised to follow up with PMD. Rx of HYDROCODONE/ACETAMINOPHEN, CEPHALEXIN,IBUPROFEN given. Opportunity to ask questions provided and answered.
== END 2021-05-08 17:41 | disposition home or self-care (01) ==
LOC: MED 15:50
DX: L03.115 Cellulitis of right lower limb (principal)
CPT/HCPCS: 96372; 99283; J1885

== ENCOUNTER 2021-05-15 17:13 | Inpatient (IN) | payer MEDICAID, SELFPAY ==
[~2021-05-15] VITALS: Ht 165.1 cm; Wt 86.2 kg
[~2021-05-15 17:13] MED LIST changes: +ACET-8386 PO; +CEPH-588 PO; +IBUP-2213 PO
[2021-05-15 18:16] VITALS: BP 125/88
[2021-05-15] MEDS ORDERED: NACL 0.9% 1,000 ML IV ONE (18:35)
--- NOTE | 2021-05-15 19:00 | NUR ---
51/M FOR RIGHT FOOT PAIN X10 DAYS. STATES HE HAD A CUT ON HIS FOOT AND STATES "ITS INFECTED" REPORTS BEING SEEN HERE ONE WEEK AGO FOR SAME SYMPTOMS BUT STATES NO IMPROVEMENT. 10/24 PAIN. WOUND NOTED ON RT FOOT BETWEEN 4TH AND 5TH TOES. MEDHX: DM ALLERGIES: NKA
[2021-05-15] MEDS ORDERED: CLINDAMYCIN 600 MG in DEXTROSE 5% 50 ML IV ONE (19:10)
[2021-05-15 19:18] LABS: BASOPHILS # (AUTO) 0.1 K/uL (0.00-0.22); BASOPHILS % (AUTO) 1.2 % (0.0-2.0); EOSINOPHILS # (AUTO) 0.1 K/uL (0-0.4); EOSINOPHILS % (AUTO) 1.6 % (0.0-4.0); HEMATOCRIT 39.9 % (36-52); HEMOGLOBIN 13.8 g/dL (12.0-18.0); LYMPHOCYTES # (AUTO) 1.8 K/uL (2.0-11.5); LYMPHOCYTES % (AUTO) 29.5 % (20.5-51.1); MEAN CORPUSCULAR HEMOGLOBIN 32 pg (27-31); MEAN CORPUSCULAR HGB CONC 35 g/dL (33-37); MEAN CORPUSCULAR VOLUME 91.2 fL (80-94); MONOCYTES # (AUTO) 0.6 K/uL (0.8-1.0); MONOCYTES % (AUTO) 9.2 % (1.7-9.3); NEUTROPHILS # (AUTO) 3.6 K/uL (1.8-7.7); NEUTROPHILS % (AUTO) 58.5 % (42.2-75.2); PLATELET COUNT (AUTO) 385 K/uL (140-450); RED BLOOD CELL COUNT(AUTO) 4.37 MIL/uL (4.20-6.10); RED CELL DISTRIBUTION WIDTH 13.1 % (11.6-13.7); WHITE BLOOD COUNT (AUTO) 6.2 K/uL (4.8-10.8)
[2021-05-15] MEDS ORDERED: CLINDAMYCIN 600 MG/4 ML VIAL ONE (19:25)
--- NOTE | 2021-05-15 19:35 | NUR ---
COMPLAIED OF PAIN , PA NOTED WITH ORDER.
[2021-05-15] MEDS ORDERED: KETOROLAC 30 MG/ML VIAL IVP ONE (19:40)
[2021-05-15 20:11] LABS: ALBUMIN 2.5 g/dL (3.4-5.0); ANION GAP 11.3 (8-16); CARBON DIOXIDE 26.8 mmol/L (21-32); CREATININE 1.2 mg/dL (0.6-1.3); POTASSIUM 4.1 mmol/L (3.5-5.1); TOTAL BILIRUBIN 0.2 mg/dL (0.0-1.0)
[2021-05-15] MEDS ORDERED: INSULIN REGULAR, HUMAN 100 UNIT/ML VIAL SUBQ ONE (20:20)
[2021-05-15] MEDS ORDERED: metroNIDAZOLE 500 MG/NS PREMIX 100 ML IV ONE (20:20)
[2021-05-15 20:34] LABS: APPEARANCE,URINE CLEAR (CLEAR); BILIRUBIN,URINE NEGATIVE (NEGATIVE); BLOOD, URINE NEGATIVE (NEGATIVE); COLOR,URINE YELLOW (YELLOW); LEUKOCYTE ESTERASE ,URINE NEGATIVE (NEGATIVE); NITRITE, URINE NEGATIVE (NEGATIVE); UGLUCOSE 3+ (NEGATIVE)
[2021-05-15] MEDS ORDERED: cefTRIAXone 1,000 MG VIAL ONE (21:32)
[2021-05-16] MEDS ORDERED: NACL 0.9% 1,000 ML IV SCH (00:25)
[2021-05-16] MEDS ORDERED: VANCOMYCIN PER PHARMACY MC PRN ×2 (00:25→11:50)
[2021-05-16] MEDS ORDERED: VANCOMYCIN 1,000 MG in DEXTROSE 5% 250 ML IV ONE (01:00)
--- NOTE | 2021-05-16 05:15 | NUR ---
PATIENT SLEEPING COMFORTABLY IN BED, DENIED ANY PAIN OR SOB, NO SIGNS OF ACUTE DISTRESS NOTED, BREATHING AT RA O2 SAT 96%. ALL SAFETY MEASURES IN PLACE, CALL LIGHT WITHIN REACH, WILL CONTINUE TO CLOSELY MONITOR AND FOLLOW POC.
--- NOTE | 2021-05-16 07:22 | NUR ---
PATIENT HAS BEEN SCREENED AND CATEGORIZED HIGH NUTRITION RISK. PATIENT WILL BE SEEN WITHIN 1-2 DAYS OF ADMISSION. 05/17/21-05/18/21 DEONTE PAGE MS, RDN
--- NOTE | 2021-05-16 07:30 | NUR ---
REPORT RECEIVED FROM JAIDEN Regalado RN FOR CONTINUITY OF CARE. PT IS A&OX4. ON ROOM AIR. IV SITE LT AC 20G, INFUSING NS 60 ML/HR. SKIN NON INTACT, RT FOOT WOUND NOTED. CALL LIGHT WITHIN REACH. SAFETY PRECAUTIONS IN PLACE.
[2021-05-16 08:35] LABS: BASOPHILS # (AUTO) 0.1 K/uL (0.00-0.22); EOSINOPHILS # (AUTO) 0.1 K/uL (0-0.4); EOSINOPHILS % (AUTO) 1.6 % (0.0-4.0); HEMATOCRIT 39.7 % (36-52); HEMOGLOBIN 13.8 g/dL (12.0-18.0); LYMPHOCYTES # (AUTO) 1.6 K/uL (2.0-11.5); MEAN CORPUSCULAR HEMOGLOBIN 31 pg (27-31); MEAN CORPUSCULAR HGB CONC 35 g/dL (33-37); MEAN CORPUSCULAR VOLUME 89.7 fL (80-94); MONOCYTES # (AUTO) 0.6 K/uL (0.8-1.0); MONOCYTES % (AUTO) 7.5 % (1.7-9.3); NEUTROPHILS # (AUTO) 5.7 K/uL (1.8-7.7); NEUTROPHILS % (AUTO) 69.9 % (42.2-75.2); PLATELET COUNT (AUTO) 390 K/uL (140-450); RED BLOOD CELL COUNT(AUTO) 4.42 MIL/uL (4.20-6.10); RED CELL DISTRIBUTION WIDTH 12.8 % (11.6-13.7); WHITE BLOOD COUNT (AUTO) 8.2 K/uL (4.8-10.8)
--- NOTE | 2021-05-16 08:45 | NUR ---
PT PROVIDED WITH BREAKFAST TRAY
[2021-05-16 08:49] LABS: ANION GAP 14.5 (8-16); CARBON DIOXIDE 23.3 mmol/L (21-32); CREATININE 1.1 mg/dL (0.6-1.3); POTASSIUM 3.8 mmol/L (3.5-5.1)
[2021-05-16] MEDS ORDERED: LORazepam 2 MG/ML VIAL IVP PRN (10:40)
[2021-05-16] MEDS ORDERED: LORazepam 2 MG/ML VIAL ONE (10:45)
--- NOTE | 2021-05-16 10:48 | NUR ---
PT AMBULATED TO RESTROOM, STEADY GAIT
--- NOTE | 2021-05-16 11:29 | NUR ---
DR ULLOA AT BEDSIDE EXAMINING PT
[2021-05-16] MEDS ORDERED: DOCUSATE SODIUM 100 MG GELCAP PO PRN ×3 (11:45→12:20)
[2021-05-16] MEDS ORDERED: ACETAMINOPHEN 325 MG TAB PO PRN (11:50)
[2021-05-16] MEDS ORDERED: ZOLPIDEM 5 MG TAB PO PRN (11:50)
[2021-05-16] MEDS ORDERED: MAG SULF 2000 MG/WATER PREMIX 50 ML IV PRN (11:50)
[2021-05-16] MEDS ORDERED: DEXTROSE 50% 50 ML SYR IVP PRN (11:50)
[2021-05-16] MEDS ORDERED: POTASSIUM CHLORIDE 10 MEQ TABER PO PRN (11:50)
[2021-05-16] MEDS ORDERED: ONDANSETRON 4 MG/2 ML VIAL IM/IVP PRN (11:50)
[2021-05-16] MEDS ORDERED: MORPHINE SULFATE 2 MG/ML SYR IVP PRN (11:50)
--- NOTE | 2021-05-16 12:00 | NUR ---
PT PROVIDED WITH LUNCH TRAY
[2021-05-16 12:24] LABS: ALBUMIN 2.5 g/dL (3.4-5.0); ANION GAP 13.1 (8-16); CARBON DIOXIDE 25.7 mmol/L (21-32); CREATININE 1.1 mg/dL (0.6-1.3); POTASSIUM 3.8 mmol/L (3.5-5.1); TOTAL BILIRUBIN 0.4 mg/dL (0.0-1.0)
[2021-05-16] MEDS: NACL 0.9% 1,000 ML IV SCH ×2 (12:24→21:50)
[2021-05-16 12:32] LABS: CHOL/HDL RATIO 2.9 (1-4.5); THYROID STIMULATING HORMONE 1.2 uIU/mL (0.34-3.74)
--- NOTE | 2021-05-16 13:43 | NUR ---
ULTRASOUND AT BEDSIDE
--- NOTE | 2021-05-16 15:30 | NUR ---
PATIENT ARRIVED FROM ER. NO DISTRESS NOTED. DENIES ANY PAIN. AMBULATORY USING CRUTCHES. IV SITE INTACT, PATENT, AND INFUSING IVF PER MD ORDERS. RIGHT FOOT CELLULITIS WOUND WITH PUS DISCHARGE NOTED, NO ODOR. REVIEWED PLAN OF CARE WITH PATIENT. VERBALIZED UNDERSTANDING. SAFETY MEASURES IN PLACE, CALL LIGHT WITHIN REACH. WILL CONTINUE TO MONITOR.
--- NOTE | 2021-05-16 15:34 | NUR ---
Patient will be admitted to care of DR ULLOA. Admited to MED SURG. Will go to room 119 B. Belongings list completed. Report to SHEEBA BAUGH.
[2021-05-16] MEDS ORDERED: VANCOMYCIN 500 MG VIAL ONE (16:55)
[2021-05-16] MEDS ORDERED: VANCOMYCIN 1,000 MG VIAL ONE (16:55)
[2021-05-16] MEDS: BLOOD GLUCOSE MONITORING 1 DEV DEV FS SCH ×2 (17:04→21:30)
[2021-05-16] MEDS: INSULIN LISPRO SLIDING SCALE 100 UNITS/ML VIAL SUBQ PRN ×2 (17:04→21:33)
[2021-05-16] MEDS: VANCOMYCIN 1,500 MG in NACL 0.9% 500 ML IV SCH (17:05)
[2021-05-16] MEDS: metFORMIN 500 MG TAB PO SCH (17:06)
--- NOTE | 2021-05-16 17:06 | NUR ---
SCHEDULED MEDICATIONS DUE GIVEN. WILL CONTINUE TO MONITOR.
--- NOTE | 2021-05-16 19:10 | NUR ---
RECEIVED REPORT FROM MORNING SHIFT FOR CONTINUITY OF CARE. PATIENT IS STABLE IN BED. A&OX4. VERBALLY RESPONSIVE AND ABLE TO COMMUNICATE NEEDS. DENIES PAIN. ON ROOM AIR WITH NO APPARENT S/SX OF ACUTE DISTRESS. RESPIRATIONS EVEN AND UNLABORED. IV SITE TO THE RAC 20G IS PATENT/INTACT WITH NS INFUSING AT 100 ML/HOUR. PATIENT IS AMBULATORY AND CONTINENT. PLAN OF CARE AND WHITE COMMUNICATION BOARD UPDATED. CALL LIGHT WITHIN REACH. WILL CONTINUE TO MONITOR.
[2021-05-16] MEDS ORDERED: cefTRIAXone 1,000 MG VIAL ONE (20:09)
[2021-05-16] MEDS ORDERED: PSYLLIUM HUSK 0.52 GM PO SCH (21:00)
[2021-05-16] MEDS ORDERED: LOVENOX 1MG/KG Q12H SUBQ SCH (21:00)
--- NOTE | 2021-05-16 21:10 | NUR ---
ADMINISTERED SCHEDULED MEDICATIONS PER MD ORDER. TOLERATED WELL. NO ADVERSE REACTION NOTED. DENIES PAIN. RESPIRATIONS EVEN AND UNLABORED WITH NO APPARENT S/SX OF ACUTE DISTRESS. SNACKS PROVIDED. WHITE COMMUNICATION BOARD UPDATED. ALL SAFETY MEASURES IN PLACE. CALL LIGHT WITHIN REACH. WILL CONTINUE TO MONITOR.
[2021-05-16] MEDS: PSYLLIUM 12.2 GM/PKT PO SCH (21:30)
[2021-05-16] MEDS: ENOXAPARIN 80 MG/0.8 ML SYR SUBQ SCH (21:32)
[2021-05-16] MEDS: LORazepam 2 MG/ML VIAL IM/IVP PRN (22:29)
--- NOTE | 2021-05-16 23:10 | NUR ---
CHECKED PATIENT. STABLE AND ASLEEP. CHEST IS RISING AND FALLING EVENLY. RESPIRATIONS EVEN AND UNLABORED WITH NO APPARENT S/SX OF ACUTE DISTRESS. WHITE COMMUNICATION BOARD UPDATED. ALL SAFETY MEASURES IN PLACE. CALL LIGHT WITHIN REACH. WILL CONTINUE TO MONITOR.
--- NOTE | 2021-05-16 23:16 | NUR ---
Patient's Plan of Care was discussed and reviewed with PASSENGER SERVICE MANAGER: JENI MCGARRY
--- NOTE | 2021-05-17 01:10 | NUR ---
ROUNDED ON PATIENT. STABLE AND ASLEEP. CHEST IS RISING AND FALLING EVENLY. RESPIRATIONS EVEN AND UNLABORED WITH NO APPARENT S/SX OF ACUTE DISTRESS. WHITE COMMUNICATION BOARD UPDATED. ALL SAFETY MEASURES IN PLACE. CALL LIGHT WITHIN REACH. WILL CONTINUE TO MONITOR.
[2021-05-17 04:00] VITALS: BP 134/88
[2021-05-17] MEDS ORDERED: VANCOMYCIN 1,000 MG VIAL ONE (05:56)
[2021-05-17] MEDS ORDERED: VANCOMYCIN 500 MG VIAL ONE (05:57)
[2021-05-17] MEDS: BLOOD GLUCOSE MONITORING 1 DEV DEV FS SCH ×4 (06:34→21:00)
[2021-05-17] MEDS: VANCOMYCIN 1,500 MG in NACL 0.9% 500 ML IV SCH ×2 (06:38→17:00)
--- NOTE | 2021-05-17 07:10 | NUR ---
ENDORSED PATIENT TO MORNING SHIFT FOR CONTINUITY OF CARE. PATIENT IS STABLE.
--- NOTE | 2021-05-17 07:10 | NUR ---
[facility] FOR [facility]UITY OF CARE.
[2021-05-17 07:39] LABS: ANION GAP 13.8 (8-16); CARBON DIOXIDE 25.9 mmol/L (21-32); POTASSIUM 3.7 mmol/L (3.5-5.1)
[2021-05-17 07:42] LABS: BASOPHILS # (AUTO) 0.1 K/uL (0.00-0.22); EOSINOPHILS # (AUTO) 0.1 K/uL (0-0.4); EOSINOPHILS % (AUTO) 1.7 % (0.0-4.0); HEMATOCRIT 38.2 % (36-52); HEMOGLOBIN 13.2 g/dL (12.0-18.0); LYMPHOCYTES # (AUTO) 2.5 K/uL (2.0-11.5); LYMPHOCYTES % (AUTO) 36.1 % (20.5-51.1); MEAN CORPUSCULAR HEMOGLOBIN 31 pg (27-31); MEAN CORPUSCULAR HGB CONC 35 g/dL (33-37); MEAN CORPUSCULAR VOLUME 90.6 fL (80-94); MONOCYTES # (AUTO) 0.6 K/uL (0.8-1.0); MONOCYTES % (AUTO) 9.2 % (1.7-9.3); NEUTROPHILS # (AUTO) 3.7 K/uL (1.8-7.7); PLATELET COUNT (AUTO) 394 K/uL (140-450); RED BLOOD CELL COUNT(AUTO) 4.21 MIL/uL (4.20-6.10)
[2021-05-17 07:47] LABS: MAGNESIUM 1.7 mg/dL (1.8-2.4); PHOSPHORUS 5.3 mg/dL (2.5-4.9)
[2021-05-17] MEDS: NACL 0.9% 1,000 ML IV SCH ×2 (07:50→18:52)
[2021-05-17] MEDS: metFORMIN 500 MG TAB PO SCH ×2 (08:32→17:05)
[2021-05-17] MEDS: LACTOBACILLUS RHAMNOSUS GG 1 EACH CAP PO SCH (08:33)
[2021-05-17] MEDS: ENOXAPARIN 80 MG/0.8 ML SYR SUBQ SCH ×2 (08:34→21:00)
--- NOTE | 2021-05-17 08:45 | NUR ---
PER PRIMARY NURSE REQUEST WOUND ASSESSMENT DONE TO RIGHT FOOT DIABETIC ULCER, 4TH AND 5TH TOE INTERSPACES ULCER 2X0.5X0.5CM WOUND BED BROWN, SMALL AMOUNT PURULENT DRAINAGE, MILD ODOR,, CHELE-WOUND SKIN DRY AND INTACT. POC DISCUSSED WITH PRIMARY NURSE, RECOMMEND PODIATRY CONSULT.
--- NOTE | 2021-05-17 09:30 | NUR ---
PT ON BED ASLEEP NO DISTRESS NOTED
--- NOTE | 2021-05-17 11:45 | NUR ---
BLOOD SUGAR CHECK GIVEN INSULIN COVERAGE. ALL SAFETY MEASURE IN PLACE.
[2021-05-17] MEDS: INSULIN LISPRO SLIDING SCALE 100 UNITS/ML VIAL SUBQ PRN ×3 (11:52→22:26)
[2021-05-17 12:00] VITALS: BP 115/80
--- NOTE | 2021-05-17 13:30 | NUR ---
PODIATRY DOCTOR AT BED SIDE SEEN AND EXAMINED PT RIGHT FOOT DIABETIC WOUND ORDER TO USE BETADINE SOLUTION IN BETWEEN TOES OF 5 AND 4TH TOE. PT AWARE.
--- NOTE | 2021-05-17 14:39 | NUR ---
PT CALLED COMPLAINING OF ANXIETY, TRIED TO REDIRECTED AND DO BREATHING EXERCISES TO CALM HIM DOWN BUT PT STATED VERY ANXIOUS. INFORM RN TO GIVE ATIVAN.
[2021-05-17] MEDS: LORazepam 2 MG/ML VIAL IM/IVP PRN ×2 (14:44→22:28)
--- NOTE | 2021-05-17 17:12 | NUR ---
BLOOD SUGAR CHECKED AND GIVEN METFORMIN ORDER. FOLLOW UP VANCO FROM PHARMACY, WAITING FOR VANCO THROUGH.
--- NOTE | 2021-05-17 17:37 | NUR ---
05/17/21 RD INITIAL ASSESSMENT COMPLETED PLEASE REFER TO NUTRITION ASSESSMENT UNDER CARE ACTIVITY FOR ESTIMATED NUTRITIONAL NEEDS. 1. CONTINUE [facility] 60GM DIET TOLERATED 2. MONITOR BLOOD GLUCOSE LEVELS 3. RD TO FOLLOW-UP 3-5 DAYS, MODERATE RISK (DOWNGRADED D/T PT WITH IMPROVED BLOOD GLUCOSE) ECTOR GU[address] RD
--- NOTE | 2021-05-17 19:35 | NUR ---
GAVE REPORT TO SENIOR ADVOCATE NURSE FOR CONTINUITY OF CARE.
[2021-05-17] MEDS: PSYLLIUM 12.2 GM/PKT PO SCH (21:00)
[2021-05-18 00:04] VITALS: BP 124/78
[2021-05-18] MEDS: VANCOMYCIN 1,500 MG in NACL 0.9% 500 ML IV SCH ×3 (05:00→21:00)
[2021-05-18] MEDS: NACL 0.9% 1,000 ML IV SCH ×3 (06:00→21:27)
[2021-05-18 06:07] LABS: HEPATITIS A ANTIBODY IGM Negative (Negative); HEPATITIS B CORE AB TOTAL Negative (Negative); HEPATITIS B SURFACE ANTIBODY Non Reactive (.); HEPATITIS B SURFACE ANTIGEN Negative (Negative)
[2021-05-18 06:39] LABS: BASOPHILS # (AUTO) 0.1 K/uL (0.00-0.22); EOSINOPHILS # (AUTO) 0.1 K/uL (0-0.4); EOSINOPHILS % (AUTO) 1.8 % (0.0-4.0); HEMATOCRIT 38.4 % (36-52); HEMOGLOBIN 13.2 g/dL (12.0-18.0); LYMPHOCYTES # (AUTO) 2.8 K/uL (2.0-11.5); LYMPHOCYTES % (AUTO) 35.1 % (20.5-51.1); MEAN CORPUSCULAR HEMOGLOBIN 31 pg (27-31); MEAN CORPUSCULAR HGB CONC 34 g/dL (33-37); MEAN CORPUSCULAR VOLUME 90.2 fL (80-94); MONOCYTES # (AUTO) 0.9 K/uL (0.8-1.0); MONOCYTES % (AUTO) 10.9 % (1.7-9.3); NEUTROPHILS # (AUTO) 4.1 K/uL (1.8-7.7); NEUTROPHILS % (AUTO) 51.2 % (42.2-75.2); PLATELET COUNT (AUTO) 419 K/uL (140-450); RED BLOOD CELL COUNT(AUTO) 4.25 MIL/uL (4.20-6.10); RED CELL DISTRIBUTION WIDTH 13.2 % (11.6-13.7); WHITE BLOOD COUNT (AUTO) 7.9 K/uL (4.8-10.8)
[2021-05-18 06:50] LABS: ANION GAP 15.5 (8-16); CARBON DIOXIDE 22.8 mmol/L (21-32); POTASSIUM 3.3 mmol/L (3.5-5.1)
[2021-05-18] MEDS: BLOOD GLUCOSE MONITORING 1 DEV DEV FS SCH ×4 (06:56→21:23)
[2021-05-18 07:08] LABS: MAGNESIUM 1.6 mg/dL (1.8-2.4); PHOSPHORUS 5.6 mg/dL (2.5-4.9)
--- NOTE | 2021-05-18 07:16 | NUR ---
RECEIVED ENDORSEMENT FROM HUMAN RESOURCES COMMUNICATIONS MANAGER NURSE FOR CONTINUITY OF CARE.
[2021-05-18] MEDS: metFORMIN 500 MG TAB PO SCH ×2 (08:18→17:11)
[2021-05-18] MEDS: LACTOBACILLUS RHAMNOSUS GG 1 EACH CAP PO SCH (08:19)
[2021-05-18] MEDS: ENOXAPARIN 80 MG/0.8 ML SYR SUBQ SCH ×2 (08:21→21:26)
--- NOTE | 2021-05-18 08:24 | NUR ---
GIVEN ALL HIS DUE MEDICATION TOLERATED WELL. RESIDENT IV REMOVED ON HIS SLEEP. NO BLEEDING NOTED ON SITE. NO ADVERSE REACTION ON ANTIBIOTIC THERAPY. ENCOURAGE TO INCREASE FLUID TOLERATED. ALL SAFETY MEASURE IN PLACE.
--- NOTE | 2021-05-18 10:00 | NUR ---
PT IV WAS REMOVED WHILE HIS SLEEPING. INSERTED ON HIS RIGHT HAND
--- NOTE | 2021-05-18 10:39 | NUR ---
IV ANTIBIOTIC HANG BY RN PT TOLERATING NO ADVERSE REACTION NOTED.
[2021-05-18] MEDS: INSULIN LISPRO SLIDING SCALE 100 UNITS/ML VIAL SUBQ PRN ×2 (11:40→21:24)
--- NOTE | 2021-05-18 11:40 | NUR ---
BLOOD SUGAR CHECK DONE GIVE INSULIN COVERAGE.
[2021-05-18 12:00] VITALS: BP 131/88
--- NOTE | 2021-05-18 13:00 | NUR ---
PT TREATMENT ON RIGHT FOOT DONE NO COMPLAIN OF PAIN.
--- NOTE | 2021-05-18 15:00 | NUR ---
PT ON BED RESTING WITH CALL LIGHT WITH IN EASY REACH.
--- NOTE | 2021-05-18 16:33 | NUR ---
BLOOD SUGAR CHECKED WITH 129 RESULT NO COVERAGE NEEDED. COMPLAIN OF ANXIETY INFORM RN TO GIVE ATIVAN.
--- NOTE | 2021-05-18 17:12 | NUR ---
PT POTASSIUM IS 3.3 GIVE K DUR.
--- NOTE | 2021-05-18 18:45 | NUR ---
ATE DINNER ON STABLE CONDITION. NO ADVERSE REACTION ON ANTIBIOTIC THERAPY.
--- NOTE | 2021-05-18 19:19 | NUR ---
PT ON STABLE CONDITION MAGNESIUM RUNNING AT THIS TIME. WILL ENDORSE TO IN STORE BANKER FOR CONTINUITY OF CARE.
[2021-05-18] MEDS: PSYLLIUM 12.2 GM/PKT PO SCH (21:24)
[2021-05-18] MEDS: LORazepam 2 MG/ML VIAL IM/IVP PRN (22:18)
[2021-05-18 22:48] VITALS: BP 129/86
[2021-05-19 04:52] VITALS: BP 120/76
[2021-05-19] MEDS: BLOOD GLUCOSE MONITORING 1 DEV DEV FS SCH ×4 (06:42→21:49)
[2021-05-19 07:02] LABS: ANION GAP 16.9 (8-16); CARBON DIOXIDE 21.9 mmol/L (21-32); CREATININE 1.1 mg/dL (0.6-1.3); POTASSIUM 3.8 mmol/L (3.5-5.1)
[2021-05-19 07:09] LABS: PHOSPHORUS 5.3 mg/dL (2.5-4.9)
--- NOTE | 2021-05-19 07:10 | NUR ---
RECEIVED REPORT FROM NARCOTICS AND/OR VICE DETECTIVE NURSE FOR CONTINUITY OF CARE. PT IN BED AT THIS TIME WATCHING TELEVISION. RESPIRATIONS ARE EVEN AND UNLABORED. NO SIGNS OF DISTRESS NOTED. PT IS ON ROOM AIR AT THIS TIME. NO COMPLAINTS OF PAIN OR DISCOMFORT AT THIS TIME. PT IS ABLE TO AMBULATE INDEPENDENTLY. EDUCATED PT REGARDING CALLING FOR ASSISTANCE WITH AMBULATING. PT VERBALIZED UNDERSTANDING. CALL LIGHT WITHIN REACH. ALL SAFETY MEASURES IN PLACE. WILL CONTINUE TO MONITOR.
[2021-05-19 08:00] VITALS: BP 111/80
[2021-05-19] MEDS: metFORMIN 500 MG TAB PO SCH ×2 (08:49→16:14)
[2021-05-19] MEDS: CALCIUM ACETATE 667 MG TAB PO SCH ×3 (08:49→16:14)
[2021-05-19] MEDS: LACTOBACILLUS RHAMNOSUS GG 1 EACH CAP PO SCH (08:50)
[2021-05-19] MEDS: ENOXAPARIN 80 MG/0.8 ML SYR SUBQ SCH ×2 (08:51→21:00)
[2021-05-19] MEDS: NACL 0.9% 1,000 ML IV SCH ×2 (09:50→19:50)
--- NOTE | 2021-05-19 10:07 | NUR ---
PT. SEEN AND TREATED BY DR. CURTIS, PER DR. CURTIS PROGRESS NOTE: " Have bandage change daily with Xeroform and Betadine" CLARIFICATION ORDER: -CLEANSE RIGHT 4TH/5TH INTERSPACE ULCER WITH NS, APPLY MOIST BETADINE SOLUTION WITH OIL EMULSION DRESSING, COVER WITH DRY DRESSING QD AND PRN IF SOILING.
[2021-05-19] MEDS: VANCOMYCIN 1,500 MG in NACL 0.9% 500 ML IV SCH ×2 (10:12→23:00)
--- NOTE | 2021-05-19 10:12 | NUR ---
VANCOMYCIN IVPB WAS GIVEN TO PT NOW.
[2021-05-19] MEDS: INSULIN LISPRO SLIDING SCALE 100 UNITS/ML VIAL SUBQ PRN ×3 (12:02→22:14)
--- NOTE | 2021-05-19 12:05 | NUR ---
PT BLOOD GLUCOSE WAS 204. COVERED WITH 4 UNITS PER MD ORDER. EDUCATED PT REGARDING BG READING AND INSULIN ADMIN. PT VERBALIZED UNDERSTANDING. WILL CONTINUE TO MONITOR.
[2021-05-19] MEDS: GAUZE TP SCH (12:24)
[2021-05-19] MEDS: LORazepam 2 MG/ML VIAL IM/IVP PRN (14:40)
--- NOTE | 2021-05-19 14:40 | NUR ---
PT WAS GIVEN ATIVAN FOR FEELING OF ANXIETY.
[2021-05-19 16:00] VITALS: BP 131/93
--- NOTE | 2021-05-19 17:20 | NUR ---
PT VERBALIZED HE WAS HUNGRY AND WANTED A SNACK. BROUGHT OVER SUGAR FREE OPTION. PT VERBALIZED THAT HE WANTED SOMETHING ELSE. EDUCATED PT ON DIABETIC APPROPRIATE SNACKS AND FOODS. PT VERBALIZED UNDERSTANDING AND CHOSE A SUGAR FREE JELLO. WILL CONTINUE TO MONITOR.
--- NOTE | 2021-05-19 19:27 | NUR ---
PT IN BED WATCHING TV AT THIS TIME. RESPIRATIONS ARE EVEN AND UNLABORED. NO SIGNS OF DISTRESS NOTED. ALL NEEDS MET THROUGHOUT SHIFT. PT IS STABLE. ENDORSED TO SHAREPOINT CONSULTANT NURSE FOR CONTINUITY OF CARE.
--- NOTE | 2021-05-19 19:28 | NUR ---
RECEIVED PATIENT REPORT FROM AM SHIFT NURSE FOR CONTINUITY OF CARE. PATIENT IN BED AWAKE, ALERT AND VERBALLY RESPONSIVE. ABLE TO MAKE NEEDS KNOWN. NOT IN DISTRESS. DENIES ANY PAIN AT THIS TIME. ALL SAFETY MEASURES IN PLACE. CALL LIGHT WITHIN REACH. WILL CONTINUE WITH CURRENT PLAN OF CARE.
[2021-05-19 19:45] LABS: BASOPHILS # (AUTO) 0.1 K/uL (0.00-0.22); BASOPHILS % (AUTO) 1.1 % (0.0-2.0); EOSINOPHILS # (AUTO) 0.1 K/uL (0-0.4); EOSINOPHILS % (AUTO) 1.7 % (0.0-4.0); HEMATOCRIT 38.2 % (36-52); LYMPHOCYTES # (AUTO) 3.3 K/uL (2.0-11.5); LYMPHOCYTES % (AUTO) 40.7 % (20.5-51.1); MEAN CORPUSCULAR HEMOGLOBIN 32 pg (27-31); MEAN CORPUSCULAR HGB CONC 34 g/dL (33-37); MEAN CORPUSCULAR VOLUME 92.7 fL (80-94); MONOCYTES # (AUTO) 0.7 K/uL (0.8-1.0); MONOCYTES % (AUTO) 8.4 % (1.7-9.3); NEUTROPHILS # (AUTO) 3.9 K/uL (1.8-7.7); NEUTROPHILS % (AUTO) 48.1 % (42.2-75.2); PLATELET COUNT (AUTO) 406 K/uL (140-450); RED BLOOD CELL COUNT(AUTO) 4.12 MIL/uL (4.20-6.10); RED CELL DISTRIBUTION WIDTH 13.4 % (11.6-13.7)
--- NOTE | 2021-05-19 20:00 | NUR ---
Patient's Plan of Care was discussed and reviewed with COMMERCIAL ACCOUNTANT: TAINA
[2021-05-19] MEDS: PSYLLIUM 12.2 GM/PKT PO SCH (21:00)
--- NOTE | 2021-05-19 21:50 | NUR ---
ADMINISTERED ALL DUE MEDICATIONS PER MD ORDERED. TOLERATED WELL. NO ASE NOTED. ALL SAFETY MEASURES IN PLACE. CALL LIGHT WITHIN REACH. WILL CONTINUE TO MONITOR.
--- NOTE | 2021-05-19 23:22 | NUR ---
CHECKED ON PATIENT. PATIENT ASLEEP WITH HOB SLIGHTLY ELEVATED. BREATHING EVEN AND UNLABORED WITH NO SOB NOTED. NOT IN DISTRESS. ALL SAFETY MEASURES IN PLACE. CALL LIGHT WITHIN REACH. WILL CONTINUE TO MONITOR.
--- NOTE | 2021-05-20 01:47 | NUR ---
ROUNDED ON PATIENT. PATIENT SITTING ON BEDSIDE AND USING URINAL. NOT IN DISTRESS. DENIES ANY PAIN AT THIS TIME. REMINDED TO USE CALL LIGHT AT ALL TIME FOR HELP OR ASSISTANCE. CALL LIGHT WITHIN REACH. WILL CONTINUE TO MONITOR.
--- NOTE | 2021-05-20 03:27 | NUR ---
PATIENT ASLEEP WITH VISIBLE CHEST RISING AND FALLING. NO SOB NOTED. CALL LIGHT WITHIN REACH. WILL CONTINUE TO MONITOR.
[2021-05-20 04:00] VITALS: BP 134/76
[2021-05-20] MEDS: NACL 0.9% 1,000 ML IV SCH ×2 (05:50→14:23)
[2021-05-20] MEDS: LORazepam 2 MG/ML VIAL IM/IVP PRN ×2 (05:55→10:58)
[2021-05-20] MEDS: BLOOD GLUCOSE MONITORING 1 DEV DEV FS SCH ×4 (06:37→20:49)
[2021-05-20 06:52] LABS: ANION GAP 13.4 (8-16); CARBON DIOXIDE 22.4 mmol/L (21-32); CREATININE 1.1 mg/dL (0.6-1.3); POTASSIUM 3.8 mmol/L (3.5-5.1)
[2021-05-20 06:58] LABS: MAGNESIUM 1.6 mg/dL (1.8-2.4); PHOSPHORUS 5.2 mg/dL (2.5-4.9)
[2021-05-20 07:22] LABS: BASOPHILS # (AUTO) 0.1 K/uL (0.00-0.22); BASOPHILS % (AUTO) 1.1 % (0.0-2.0); EOSINOPHILS # (AUTO) 0.2 K/uL (0-0.4); EOSINOPHILS % (AUTO) 2.3 % (0.0-4.0); HEMOGLOBIN 13.5 g/dL (12.0-18.0); LYMPHOCYTES % (AUTO) 39.1 % (20.5-51.1); MEAN CORPUSCULAR HEMOGLOBIN 31 pg (27-31); MEAN CORPUSCULAR HGB CONC 35 g/dL (33-37); MEAN CORPUSCULAR VOLUME 90.1 fL (80-94); MONOCYTES # (AUTO) 0.7 K/uL (0.8-1.0); MONOCYTES % (AUTO) 9.7 % (1.7-9.3); NEUTROPHILS # (AUTO) 3.6 K/uL (1.8-7.7); NEUTROPHILS % (AUTO) 47.8 % (42.2-75.2); PLATELET COUNT (AUTO) 398 K/uL (140-450); RED BLOOD CELL COUNT(AUTO) 4.32 MIL/uL (4.20-6.10); WHITE BLOOD COUNT (AUTO) 7.6 K/uL (4.8-10.8)
--- NOTE | 2021-05-20 07:28 | NUR ---
ENDORSED PATIENT REPORT TO AM SHIFT NURSE FOR CONTINUITY OF CARE. PATIENT IS STABLE.
--- NOTE | 2021-05-20 07:28 | NUR ---
OPENING NOTES: PATIENT IS RESTING IN BED. AAOX4, ABLE TO MAKE NEEDS KNOWN. NO ADDITIONAL DISTRESS NOTED. EXPLAINED PLAN OF CARE AND PATIENT VERBALIZED UNDERSTANDING. BED IN LOW AND LOCK POSITION. CALL LIGHT WITHIN REACH. L THUMB 24 G INTACT WITH IVF RUNNING. STABLE CONDITION AT THIS TIME. WILL CONT TO MONITOR.
[2021-05-20 08:00] VITALS: BP 125/92
[2021-05-20] MEDS: ENOXAPARIN 80 MG/0.8 ML SYR SUBQ SCH ×2 (09:00→21:00)
--- NOTE | 2021-05-20 09:00 | NUR ---
NPO AT THIS TIME FOR R FOOT I AND D TODAY. PATIENT IS MADE AWARE.
[2021-05-20] MEDS: LACTOBACILLUS RHAMNOSUS GG 1 EACH CAP PO SCH (09:29)
[2021-05-20] MEDS: CALCIUM ACETATE 667 MG TAB PO SCH ×3 (09:29→17:00)
[2021-05-20] MEDS: VANCOMYCIN 1,500 MG in NACL 0.9% 500 ML IV SCH ×2 (09:30→22:49)
--- NOTE | 2021-05-20 09:30 | NUR ---
CHG BATH PERFORMED
[2021-05-20] MEDS: metFORMIN 500 MG TAB PO SCH ×2 (09:40→17:00)
--- NOTE | 2021-05-20 11:30 | NUR ---
BS 271. NPO AT THIS TIME FOR R FOOT SURGERY. NO INSULIN GIVEN
[2021-05-20] MEDS: GAUZE TP SCH (11:55)
--- NOTE | 2021-05-20 16:50 | NUR ---
LEFT THE UNIT FOR SURGERY LEFT THE UNIT IN A STABLE CONDITION ACCOMPANIED BY OR NURSES.
[2021-05-20] MEDS ORDERED: BUPIVACAINE-MPF 0.25% 30 ML VIAL INJ ONE (16:54)
[2021-05-20] MEDS ORDERED: PROPOFOL 200 MG/20 ML VIAL IV ONE (17:01)
[2021-05-20] MEDS ORDERED: DESFLURANE 240 ML BTL INH ONE (17:42)
[2021-05-20] MEDS ORDERED: ONDANSETRON 4 MG/2 ML VIAL ONE (17:44)
[2021-05-20] MEDS ORDERED: fentaNYL citrate 0.05 MG/ML VIAL ONE (17:44)
[2021-05-20] MEDS ORDERED: KETOROLAC 30 MG/ML VIAL ONE (17:44)
[2021-05-20 19:10] VITALS: BP 131/97
--- NOTE | 2021-05-20 19:10 | NUR ---
CLOSING NOTES: PATIENT RETURNED FROM PACU IN A STABLE CONDITION. ALERT AND AWAKE, OX4. ABLE TO MAKE NEEDS KNOWN. IV NOTED TO THE RH 20 G. L THUMB IV DC FROM OR. R FOOT DRESSING C/D/I. NO ADDITIONAL DISTRESS NOTED. BED IN LOW AND LOCK POSITION. CALL LIGHT WITHIN REACH. PACU NURSE GAVE PATIENT 1 CUP OF OJ TO DRINK. LATEST BS PER OR NURSE 148. WILL ENDORSE TO THE NEXT SHIFT NURSE.
[2021-05-20 20:00] VITALS: BP 135/97
[2021-05-20] MEDS: PSYLLIUM 12.2 GM/PKT PO SCH (20:31)
[2021-05-20] MEDS: INSULIN LISPRO SLIDING SCALE 100 UNITS/ML VIAL SUBQ PRN (23:51)
[2021-05-21] MEDS: NACL 0.9% 1,000 ML IV SCH ×2 (01:38→12:06)
[2021-05-21] MEDS: HYDROcodone/APAP 5/325 MG 1 TAB TAB PO PRN ×2 (01:45→10:05)
[2021-05-21 04:47] VITALS: BP 106/73
[2021-05-21] MEDS: BLOOD GLUCOSE MONITORING 1 DEV DEV FS SCH ×3 (06:06→16:14)
[2021-05-21] MEDS: INSULIN LISPRO SLIDING SCALE 100 UNITS/ML VIAL SUBQ PRN ×3 (06:32→16:16)
--- NOTE | 2021-05-21 07:18 | NUR ---
RECEIVED REPORT FROM WOODWIND REEDS CUTTER NURSE FOR CONTINUITY OF CARE. PT IN BED SLEEPING AT THIS TIME. RESPIRATIONS ARE EVEN AND UNLABORED. NO SIGNS OF DISTRESS NOTED. PT IS ON ROOM AIR, WITH 02 SAT AT 98%. PT IS A&OX4. ABLE TO VERBALIZE NEEDS TO STAFF. PT IS ON CCHO DIET, ABD IS NONTENDER, NONDISTENDED WITH BOWEL SOUNDS PRESENT. PT HAS R FOOT DRESSING IN PLACE DUE TO R FOOT I&D PROCEDURE OF 05/20/21. PT HAS R HAND 20G INTACT. AT THIS TIME NO COMPLAINTS OF PAIN OR DISCOMFORT NOTED. PT IS STATING THAT HE HAS SORE THROAT, INFORMED PT THAT I WILL LET DR KNOW. PT VERBALIZED UNDERSTANDING. CALL LIGHT WITHIN REACH. ALL SAFETY MEASURES IN PLACE. WILL CONTINUE TO MONITOR.
[2021-05-21 07:23] LABS: BASOPHILS # (AUTO) 0.1 K/uL (0.00-0.22); EOSINOPHILS # (AUTO) 0.2 K/uL (0-0.4); EOSINOPHILS % (AUTO) 2.8 % (0.0-4.0); HEMATOCRIT 39.5 % (36-52); HEMOGLOBIN 13.6 g/dL (12.0-18.0); LYMPHOCYTES # (AUTO) 3.2 K/uL (2.0-11.5); LYMPHOCYTES % (AUTO) 39.5 % (20.5-51.1); MEAN CORPUSCULAR HEMOGLOBIN 31 pg (27-31); MEAN CORPUSCULAR HGB CONC 34 g/dL (33-37); MEAN CORPUSCULAR VOLUME 90.8 fL (80-94); MONOCYTES # (AUTO) 0.8 K/uL (0.8-1.0); MONOCYTES % (AUTO) 10.1 % (1.7-9.3); NEUTROPHILS # (AUTO) 3.8 K/uL (1.8-7.7); NEUTROPHILS % (AUTO) 46.6 % (42.2-75.2); PLATELET COUNT (AUTO) 367 K/uL (140-450); RED BLOOD CELL COUNT(AUTO) 4.35 MIL/uL (4.20-6.10); RED CELL DISTRIBUTION WIDTH 13.3 % (11.6-13.7); WHITE BLOOD COUNT (AUTO) 8.1 K/uL (4.8-10.8)
[2021-05-21 07:34] LABS: CARBON DIOXIDE 20.9 mmol/L (21-32); CREATININE 1.2 mg/dL (0.6-1.3); POTASSIUM 3.9 mmol/L (3.5-5.1)
[2021-05-21 07:47] LABS: MAGNESIUM 1.7 mg/dL (1.8-2.4); PHOSPHORUS 5.2 mg/dL (2.5-4.9)
[2021-05-21 08:00] VITALS: BP 125/92
--- NOTE | 2021-05-21 08:00 | NUR ---
DISCUSSED PLAN OF CARE WITH KRAIG JENSEN. WILL CONTINUE TO MONITOR
[2021-05-21] MEDS ORDERED: BENZOCAINE/MENTHOL 1 LOZ MM PRN (08:30)
[2021-05-21] MEDS: CALCIUM ACETATE 667 MG TAB PO SCH ×2 (08:47→12:10)
[2021-05-21] MEDS: metFORMIN 500 MG TAB PO SCH (08:47)
[2021-05-21] MEDS: LACTOBACILLUS RHAMNOSUS GG 1 EACH CAP PO SCH (08:48)
[2021-05-21] MEDS ORDERED: BENZOCAINE 20% 57 GM CAN MC PRN (08:50)
[2021-05-21] MEDS: ENOXAPARIN 80 MG/0.8 ML SYR SUBQ SCH (08:50)
--- NOTE | 2021-05-21 08:50 | NUR ---
ADMINISTERED ALL SCHEDULED MEDICATIONS. EDUCATED PT REGARDING MEDS ADMINISTERED. ANSWERED ALL QUESTIONS. WILL CONTINUE TO MONITOR.
[2021-05-21] MEDS: VANCOMYCIN 1,500 MG in NACL 0.9% 500 ML IV SCH (09:00)
--- NOTE | 2021-05-21 10:05 | NUR ---
PT COMPLAINING OF PAIN, STATING PAIN IS 5/10. MEDICATED PER MD ORDER. WILL CONTINUE TO MONITOR.
--- NOTE | 2021-05-21 11:20 | NUR ---
PT BLOOD GLUCOSE WAS 231. COVERED WITH 4 UNITS PER MD ORDER. WILL CONTINUE TO MONITOR.
--- NOTE | 2021-05-21 12:42 | NUR ---
05/21/21 RD FOLLOW UP COMPLETED PLEASE REFER TO NUTRITION ASSESSMENT UNDER CARE ACTIVITY FOR ESTIMATED NUTRITIONAL NEEDS. 1. CONTINUE [facility] 60GM DIET TOLERATED 2. MONITOR BLOOD GLUCOSE LEVELS 3. RD TO FOLLOW-UP 7 DAYS, LOW RISK ECTOR GUALLPA RD
[2021-05-21] MEDS: GAUZE TP SCH (13:10)
--- NOTE | 2021-05-21 13:10 | NUR ---
CHANGED PT GAUZE TO R FOOT. PT TOLERATED WELL. WILL CONTINUE TO MONITOR.
[2021-05-21] MEDS ORDERED: VANC125C12 PO (14:58)
[2021-05-21] MEDS ORDERED: SULF-59 PO (14:58)
--- NOTE | 2021-05-21 15:29 | NUR ---
WOUND CARE DISCUSSED WITH DR. VILLAGOMEZ, S/P I&D LEFT FOOT/TOES WOUND AND WILL FOLLOW DR. CURTIS INSTRUCTION AND HAVE HOME HEALTH FOLLOW UP FOR WOUND CARE. -CLEANSE LEFT FOOT 4TH/5TH TOES WITH NS, PAT DRY, APPLY MOIST BETADINE DRESSING, 4 X 4 GAUZE, WRAP WITH JENNIFER AND ROSA ISELA WRAP. -HOME HEALTH FOLLOW UP FOR WOUND CARE.
--- NOTE | 2021-05-21 16:26 | NUR ---
DC PLANNING: DC ORDERS RECEIVED, SPOKE WITH BARBARA HARDWICK TO ENTER WOUND CARE ORDERS. PATIENT WILL DC TO HIS DAUGHTERS HOME AT [address], [address] CM SPOKE WITH [facility], GIVEN LIST OF HOME HEALTH AGENCIES, NO ONE ABLE TOS EE THE PATIENT THIS WEEKEND, [facility] [phone] CAN START CARE ON MONDAY OR MONDAY PER NESTLE. ASKED THE PATIENTS NURSE KRAIG TO TEACH THE PATIENT HOW TO DO WOUND CARE AND TO SEND WOUND CARE SUPPLIES HOME WITH THE PATIENT. CM WILL FOLLOW.
[2021-05-21 16:49] VITALS: BP 132/98
[2021-05-21] MEDS ORDERED: AMPI500C49 PO (17:25)
--- NOTE | 2021-05-21 17:45 | NUR ---
WENT OVER DISCHARGE PAPERWORK WITH PT. ANSWERED ALL QUESTIONS. GAVE PT WOUND CARE SUPPLIES, DUE TO WOUND CARE WOULD NOT BE AVAILABLE FOR PT UNTIL MONDAY. DEMONSTRATED TO PT HOW TO DO WOUND CARE AND GAVE WRITTEN INSTRUCTIONS. PT ABLE TO RETURN DEMONSTRATION. PT SIGNED ALL DISCHARGE PAPERWORK. PT LEFT UNIT VIA WHEELCHAIR. PICKED UP BY FAMILY. DISCHARGED HOME. ALL BELONGINGS TAKEN UPON DISCHARGE.
[2021-05-22] MEDS ORDERED: GAUZE TP SCH (13:00)
== END 2021-05-21 17:45 | disposition home health service (06) | DRG 383 ==
LOC: MED 17:13 → MMU 05-16 00:44 → MTU 05-16 15:16
PROC: 0JBQ0ZZ Excision of Right Foot Subcutaneous Tissue and Fascia, Open Approach (ICD-10-PCS; principal; 2021-05-20 17:00)
DX: L03.115 Cellulitis of right lower limb (principal); E43 Unspecified severe protein-calorie malnutrition; E11.621 Type 2 diabetes mellitus with foot ulcer; L97.519 Non-pressure chronic ulcer of other part of right foot with unspecified severity; E83.39 Other disorders of phosphorus metabolism; E66.9 Obesity, unspecified; L02.611 Cutaneous abscess of right foot; E11.65 Type 2 diabetes mellitus with hyperglycemia; Z20.822 Contact with and (suspected) exposure to COVID-19; E87.6 Hypokalemia; K59.00 Constipation, unspecified; R74.01 Elevation of levels of liver transaminase levels; Z79.899 Other long term (current) drug therapy; Z90.49 Acquired absence of other specified parts of digestive tract; Z68.31 Body mass index [BMI] 31.0-31.9, adult
CPT/HCPCS: 36415; 71045; 73630; 76700; 80048; 80053; 80202; 81003; 82948; 83036; 83690; 83735; 83880; 84100; 84134; 84443; 85025; 85610; 85651; 85730; 86140; 86704; 86706; 86708; 86709; 86803; 87040; 87070; 87075; 87081; 87186; 87205; 87340; 93005; 93925; 93970; 96361; 96365; 96372; 96375; 97110; 97116; 97530; 99285; J0696; J1650; J1815; J1885; J2060; J2405; J2704; J3010; J3370; J3475; J3490; J7030; J7060; Q0092

== ENCOUNTER 2021-08-05 13:05 | Emergency (ER) | payer MEDICAID ==
[~2021-08-05] VITALS: Ht 261.6 cm; Wt 85.7 kg
[~2021-08-05 13:05] MED LIST changes: -ACET-8386 PO; +AMPI500C49 PO; -CEPH-588 PO; -LEVO750T2 PO; -PSYL0.5216 PO; +SULF-59 PO; -TAM75 PO
[2021-08-05 13:19] VITALS: BP 119/74
--- NOTE | 2021-08-05 13:34 | NUR ---
PT BIB SELF C/O TESTICLE & PENILE SWELLING/PAIN X2 DAYS. STATES HIS RIGHT TESTICLE IS "RAISED UP." DENIES DISCHARGE OR PAINFUL URINATION. STATES HE WAS URGENT CARE YESTERDAY AND REFERRED TO ED.
--- NOTE | 2021-08-05 13:45 | NUR ---
UA SENT TO LAB, U/S AT BEDSIDE
--- NOTE | 2021-08-05 13:59 | NUR ---
51/M BIB SELF C/O TESTICLE AND PENILE SWELLING AND DISCOMFORT X2 DAYS AND PAIN 7/10. PT HAS A R TESTICAL SWELLING,NO DISCHARGE OR PAINFUL URINATION. STATES HE WAS URGENT CARE YESTERDAY AND REFERRED TO ED. JANI PMH: CHUY
--- NOTE | 2021-08-05 14:09 | NUR ---
DR CRUZ AT BEDSIDE.
[2021-08-05 14:58] LABS: APPEARANCE,URINE CLEAR (CLEAR); BILIRUBIN,URINE NEGATIVE (NEGATIVE); BLOOD, URINE NEGATIVE (NEGATIVE); COLOR,URINE YELLOW (YELLOW); LEUKOCYTE ESTERASE ,URINE NEGATIVE (NEGATIVE); NITRITE, URINE NEGATIVE (NEGATIVE); PH,URINE 5.5 (5.0-9.0); UGLUCOSE 1+ (NEGATIVE)
[2021-08-05] MEDS ORDERED: DOXY-690 PO ×2 (15:24→15:25)
[2021-08-05] MEDS ORDERED: NAPR-54 PO (15:25)
[2021-08-05] MEDS ORDERED: cefTRIAXone 250 MG in LIDOCAINE MPF 1% 0.9 ML IM ONE (15:30)
[2021-08-05] MEDS ORDERED: cefTRIAXone 250 MG VIAL ONE (15:33)
[2021-08-05] MEDS ORDERED: LIDOCAINE MPF 1% 5 ML ONE (15:34)
--- NOTE | 2021-08-05 15:56 | NUR ---
Patient discharged with v/s stable. Written and verbal after care instructions given and explained. Patient alert, oriented and verbalized understanding of instructions. Ambulatory with steady gait. All questions addressed prior to discharge. ID band removed. Patient advised to follow up with PMD. Rx of DOXYCYLINE HYCLATE, NAPROXEN, given. Opportunity to ask questions provided and answered.
== END 2021-08-05 15:55 | disposition home or self-care (01) ==
LOC: MED 13:05
DX: N50.811 Right testicular pain (principal); E11.9 Type 2 diabetes mellitus without complications; Z79.899 Other long term (current) drug therapy; Z90.49 Acquired absence of other specified parts of digestive tract; Z79.84 Long term (current) use of oral hypoglycemic drugs
CPT/HCPCS: 36415; 76870; 81003; 87491; 96372; 99284; J0696; J2001; Q0092

== ENCOUNTER 2021-08-11 19:15 | Emergency (ER) | payer MEDICAID ==
[~2021-08-11] VITALS: Ht 162.6 cm; Wt 81.6 kg
[~2021-08-11 19:15] MED LIST changes: +DOXY-690 PO; +METF-564 PO; -METF500T PO; +NAPR-54 PO
[2021-08-11 19:28] VITALS: BP 120/81
--- NOTE | 2021-08-11 19:33 | NUR ---
pt sent to lobby.
--- NOTE | 2021-08-11 19:55 | NUR ---
pt ambulated to bed 12
--- NOTE | 2021-08-11 20:27 | NUR ---
ER AT BEDSIDE
[2021-08-11] MEDS ORDERED: FURO-572 PO (21:47)
[2021-08-11 22:00] VITALS: BP 120/81
--- NOTE | 2021-08-11 22:00 | NUR ---
Patient discharged with v/s stable. Written and verbal after care instructions given and explained. Patient alert, oriented and verbalized understanding of instructions. Ambulatory with steady gait. All questions addressed prior to discharge. ID band removed. Patient advised to follow up with PMD. Rx of FUROSEMIDE given. Patient educated on indication of medication including possible reaction and side effects. Opportunity to ask questions provided and answered.
== END 2021-08-11 22:00 | disposition home or self-care (01) ==
LOC: MED 19:15
DX: N50.89 Other specified disorders of the male genital organs (principal); E11.9 Type 2 diabetes mellitus without complications; F17.200 Nicotine dependence, unspecified, uncomplicated; Z90.49 Acquired absence of other specified parts of digestive tract; Z79.899 Other long term (current) drug therapy; Z79.84 Long term (current) use of oral hypoglycemic drugs
CPT/HCPCS: 99283

== ENCOUNTER 2021-10-17 01:08 | Emergency (ER) | payer MEDICAID ==
[~2021-10-17] VITALS: Ht 165.1 cm; Wt 86.2 kg
[~2021-10-17 01:08] MED LIST changes: +FURO-572 PO; +METF-346 PO; -METF-564 PO
[2021-10-17 01:17] VITALS: BP 113/50
--- NOTE | 2021-10-17 01:19 | NUR ---
PT TO BED 02.
--- NOTE | 2021-10-17 01:45 | NUR ---
51 Y.O. M BIB SELF C/O BILAT LEG SWELLING [id number]. REPORTS SOB. +1 PITTING EDEMA ON BLE. DENIES ANY PAIN. DENIES N/V/D AND CHEST PAIN. PT IS STATING 95% RA. A&OX4, SKIN INTACT EXCEPT FRO SOME BRUISES, STEADY GAIT, VITALS WNL FOR PT, AND GI/ WNL. HX:DM2 RX:METFORMIN
[2021-10-17 02:22] LABS: BASOPHILS # (AUTO) 0.1 K/uL (0.00-0.22); BASOPHILS % (AUTO) 1.2 % (0.0-2.0); EOSINOPHILS # (AUTO) 0.1 K/uL (0-0.4); EOSINOPHILS % (AUTO) 1.5 % (0.0-4.0); HEMATOCRIT 46.7 % (36-52); HEMOGLOBIN 15.6 g/dL (12.0-18.0); LYMPHOCYTES # (AUTO) 1.8 K/uL (2.0-11.5); LYMPHOCYTES % (AUTO) 28.5 % (20.5-51.1); MEAN CORPUSCULAR HEMOGLOBIN 32 pg (27-31); MEAN CORPUSCULAR HGB CONC 34 g/dL (33-37); MEAN CORPUSCULAR VOLUME 95.2 fL (80-94); MONOCYTES # (AUTO) 0.9 K/uL (0.8-1.0); MONOCYTES % (AUTO) 14.2 % (1.7-9.3); NEUTROPHILS # (AUTO) 3.4 K/uL (1.8-7.7); NEUTROPHILS % (AUTO) 54.6 % (42.2-75.2); PLATELET COUNT (AUTO) 220 K/uL (140-450); RED BLOOD CELL COUNT(AUTO) 4.91 MIL/uL (4.20-6.10); RED CELL DISTRIBUTION WIDTH 15.4 % (11.6-13.7); WHITE BLOOD COUNT (AUTO) 6.3 K/uL (4.8-10.8)
[2021-10-17 02:43] LABS: ALBUMIN 3.3 g/dL (3.4-5.0); ANION GAP 13.5 (8-16); CARBON DIOXIDE 20.6 mmol/L (21-32); CREATININE 1.3 mg/dL (0.6-1.3); POTASSIUM 4.1 mmol/L (3.5-5.1); TOTAL BILIRUBIN 1.2 mg/dL (0.0-1.0)
[2021-10-17] MEDS ORDERED: FUROSEMIDE 40 MG TAB PO ONE (02:45)
[2021-10-17] MEDS ORDERED: FURO-570 PO (02:52)
[2021-10-17 04:30] VITALS: BP 117/88
--- NOTE | 2021-10-17 04:30 | NUR ---
Patient discharged with v/s stable. Written and verbal after care instructions given and explained. Patient alert, oriented and verbalized understanding of instructions. Ambulatory with steady gait. All questions addressed prior to discharge. ID band removed. Patient advised to follow up with PMD. Rx of LASIX given. Patient educated on indication of medication including possible reaction and side effects. Opportunity to ask questions provided and answered.
== END 2021-10-17 04:30 | disposition home or self-care (01) ==
LOC: MED 01:08
DX: R60.0 Localized edema (principal); E11.9 Type 2 diabetes mellitus without complications; Z79.899 Other long term (current) drug therapy; Z79.2 Long term (current) use of antibiotics; Z79.1 Long term (current) use of non-steroidal anti-inflammatories (NSAID)
CPT/HCPCS: 36415; 71045; 80053; 83880; 84484; 85025; 93005; 99285; Q0092

== ENCOUNTER 2021-11-08 20:03 | Emergency (ER) | payer MEDICAID ==
[~2021-11-08] VITALS: Ht 165.1 cm; Wt 86.0 kg
[~2021-11-08 20:03] MED LIST changes: +FURO-570 PO
[2021-11-08 20:32] VITALS: BP 132/90
--- NOTE | 2021-11-08 20:37 | NUR ---
PT PLACED IN CARTER WITH O2, WAITING FOR BED. SARKIS PICKETT MADE AWARE.
--- NOTE | 2021-11-08 20:49 | NUR ---
EKG IN CARTER
--- NOTE | 2021-11-08 21:01 | NUR ---
LAB COLLECTED BLOOD. PT IN RR
[2021-11-08 21:15] LABS: ALBUMIN 2.9 g/dL (3.4-5.0); CARBON DIOXIDE 18.9 mmol/L (21-32); CREATININE 1.3 mg/dL (0.6-1.3); POTASSIUM 3.9 mmol/L (3.5-5.1); TOTAL BILIRUBIN 2.1 mg/dL (0.0-1.0)
--- NOTE | 2021-11-08 21:26 | NUR ---
TAKEN TO RAD VIA W/C
--- NOTE | 2021-11-08 22:24 | NUR ---
pt moved to bed 3 via wc
[2021-11-08] MEDS ORDERED: FUROSEMIDE 40 MG/4 ML VIAL IVP ONE (22:45)
--- NOTE | 2021-11-08 23:23 | NUR ---
ASSUMED CARE OF THIS PT AT THIS TIME
[2021-11-09 01:08] LABS: BASOPHILS % (AUTO) 0.2 % (0.0-2.0); EOSINOPHILS % (AUTO) 0.4 % (0.0-4.0); HEMATOCRIT 43.7 % (36-52); HEMOGLOBIN 14.5 g/dL (12.0-18.0); LYMPHOCYTES # (AUTO) 0.8 K/uL (2.0-11.5); MEAN CORPUSCULAR HEMOGLOBIN 32 pg (27-31); MEAN CORPUSCULAR HGB CONC 33 g/dL (33-37); MEAN CORPUSCULAR VOLUME 96.4 fL (80-94); MONOCYTES # (AUTO) 0.9 K/uL (0.8-1.0); NEUTROPHILS # (AUTO) 4.5 K/uL (1.8-7.7); NEUTROPHILS % (AUTO) 71.4 % (42.2-75.2); PLATELET COUNT (AUTO) 247 K/uL (140-450); RED BLOOD CELL COUNT(AUTO) 4.53 MIL/uL (4.20-6.10); RED CELL DISTRIBUTION WIDTH 16.2 % (11.6-13.7); WHITE BLOOD COUNT (AUTO) 6.3 K/uL (4.8-10.8)
[2021-11-09] MEDS ORDERED: FURO-570 PO (03:07)
[2021-11-09 03:31] VITALS: BP 115/73
== END 2021-11-09 03:31 | disposition home or self-care (01) ==
LOC: MED 20:03
DX: I50.9 Heart failure, unspecified (principal); M79.89 Other specified soft tissue disorders
CPT/HCPCS: 36415; 71045; 80053; 83880; 84484; 85025; 93005; 96374; 99285; J1940

== ENCOUNTER 2022-05-18 19:39 | Inpatient (IN) | payer MEDICAID ==
[~2022-05-18] VITALS: Ht 167.6 cm; Wt 85.3 kg
[~2022-05-18 19:39] MED LIST changes: +AMOX-999 PO; -AMPI500C49 PO; -DOXY-690 PO; -FURO-572 PO; +METO50TE2 PO; -NAPR-54 PO; -SULF-59 PO
[2022-05-18 20:00] VITALS: BP 140/96
--- NOTE | 2022-05-18 20:13 | NUR ---
to bed 11
[2022-05-18] MEDS ORDERED: ALBUTEROL SULFATE/IPRATROPIU 3 ML SOL IH ONE (20:25)
[2022-05-18] MEDS ORDERED: FUROSEMIDE 40 MG/4 ML VIAL IVP ONE (21:00)
[2022-05-18 21:09] LABS: BASOPHILS % (AUTO) 0.6 % (0.0-2.0); EOSINOPHILS # (AUTO) 0.1 K/uL (0-0.4); EOSINOPHILS % (AUTO) 0.7 % (0.0-4.0); HEMATOCRIT 49.1 % (36-52); HEMOGLOBIN 16.7 g/dL (12.0-18.0); LYMPHOCYTES # (AUTO) 2.5 K/uL (2.0-11.5); LYMPHOCYTES % (AUTO) 32.4 % (20.5-51.1); MEAN CORPUSCULAR HEMOGLOBIN 32 pg (27-31); MEAN CORPUSCULAR HGB CONC 34 g/dL (33-37); MEAN CORPUSCULAR VOLUME 93.7 fL (80-94); MONOCYTES # (AUTO) 0.9 K/uL (0.8-1.0); MONOCYTES % (AUTO) 11.7 % (1.7-9.3); NEUTROPHILS # (AUTO) 4.3 K/uL (1.8-7.7); NEUTROPHILS % (AUTO) 54.6 % (42.2-75.2); PLATELET COUNT (AUTO) 233 K/uL (140-450); RED BLOOD CELL COUNT(AUTO) 5.24 MIL/uL (4.20-6.10); RED CELL DISTRIBUTION WIDTH 13.3 % (11.6-13.7); WHITE BLOOD COUNT (AUTO) 7.8 K/uL (4.8-10.8)
[2022-05-18 21:24] LABS: ANION GAP 15.4 (8-16); CARBON DIOXIDE 19.4 mmol/L (21-32); CREATININE 1.3 mg/dL (0.6-1.3); POTASSIUM 3.8 mmol/L (3.5-5.1)
[2022-05-18 21:34] VITALS: BP 140/101
--- NOTE | 2022-05-18 21:56 | NUR ---
PATIENT ALERT ORIENTED NOT COMPLAINING OF PAIN VITALS SIGNS IN NORMAL LIMITS CAME FOR CHF EXACERBATION TROPONIN 337 BNP 566 EKG SINUS TACHICARDIA DOCTOR INFORMED
[2022-05-18] MEDS ORDERED: ASPIRIN 325 MG TAB PO ONE (22:20)
--- NOTE | 2022-05-18 22:42 | NUR ---
PATIENT STABLE VITALS SIGNS IN NORMAL LIMITS OUT PUT AFTER FUROSEMIDE 40 MG IV 1000 ML OUT
--- NOTE | 2022-05-18 23:33 | NUR ---
PATIENT STABLE VITALS SIGNS IN NORMAL LIMIT PATIENT IS IN BIPAP FIO2 50 % HR 102 ST ON MONITOR
[2022-05-18] MEDS ORDERED: MORPHINE SULFATE 2 MG/ML SYR IVP PRN (23:45)
--- NOTE | 2022-05-19 00:15 | NUR ---
PT TRANSPORTED FROM ER VIA GURNEY. PT IS ALERT AND ORIENTATED ON BIPAP SATING 100%. PT IS AMBULATORY. GAIT STEADY. PT HAS RIGHT AC 20 GAUGE SALINE LOCK. EDUCATED PT HARBOR ENGINEER LIGHT SYSTEM. CALL LIGHT WITHIN REACH. POC OF DISCUSSED. WILL CONTINUE TO MONITOR THE PT.
--- NOTE | 2022-05-19 00:15 | NUR ---
ASSISTED WITH TRANSFERRING PT FROM ER TO TELE. PT TOLERATED TRANSFER WELL. BIPAP RECONNECTED TO RED OUTLET, AMBU BAG IS AT BEDSIDE. WILL CONTINUE TO MONITOR PT.
[2022-05-19 00:30] VITALS: BP_SYST 122; BP_SYST 127; BP_DIAS 83
--- NOTE | 2022-05-19 00:31 | NUR ---
PATIENT STABLE ALERT ORIENTED TIME 4 VITALS SIGNS IN NORMAL LIMITS ST 102 ON MONITOR NOT COMPLAINING OF PAIN ADMITED TO TELE ROOM 110 B REPORT AND ENDORSED CARE TO QUE BAUGH
--- NOTE | 2022-05-19 00:54 | NUR ---
PT WAS NOT FED ANYTHING IN THE ER. SNACKS PROVIDED FOR THE PT.
[2022-05-19] MEDS ORDERED: INSULIN LISPRO SLIDING SCALE 100 UNITS/ML VIAL SUBQ PRN (02:35)
[2022-05-19 04:00] VITALS: BP 127/83
[2022-05-19] MEDS: BLOOD GLUCOSE MONITORING 1 DEV DEV FS SCH ×4 (06:41→20:32)
--- NOTE | 2022-05-19 07:15 | NUR ---
ENDORSED PT TO DAY SHIFT RN FOR CONTINUITY OF CARE. PT IS STABLE.
--- NOTE | 2022-05-19 07:30 | NUR ---
RECEIVED REPORT FROM AIRCRAFT MOTOR MECHANIC NURSE FOR CONTINUITY OF CARE, POC DISCUSSED. PT RESTING IN BED WITH CHEST RISING AND FALLING EVEN AND UNLABORED, ON 5L NC, REPORTS NO SOB AT THIS TIME. NO S/S OF ACUTE DISTRESS. ON TELE MONITOR. ALL SAFETY MEASURES IN PLACE, CALL LIGHT WITHIN REACH. WILL CONTINUE TO MONITOR.
[2022-05-19] MEDS ORDERED: POTASSIUM CHLORIDE 10 MEQ TABER PO PRN (07:45)
[2022-05-19] MEDS ORDERED: ONDANSETRON 4 MG/2 ML VIAL IVP PRN (07:45)
[2022-05-19] MEDS ORDERED: ACETAMINOPHEN 325 MG TAB PO PRN (07:45)
[2022-05-19] MEDS ORDERED: ZOLPIDEM 10 MG TAB PO PRN (07:45)
[2022-05-19] MEDS ORDERED: DOCUSATE SODIUM 100 MG GELCAP PO PRN (07:45)
[2022-05-19] MEDS ORDERED: LORazepam 2 MG/ML VIAL IVP PRN (07:45)
[2022-05-19] MEDS ORDERED: MORPHINE SULFATE 2 MG/ML SYR IVP PRN (07:45)
[2022-05-19] MEDS ORDERED: DEXTROSE 50% 50 ML SYR IVP PRN (07:45)
[2022-05-19] MEDS ORDERED: MAG SULF 2000 MG/WATER PREMIX 50 ML IV PRN (07:45)
[2022-05-19] MEDS ORDERED: LOVENOX 1MG/KG Q12H SUBQ SCH (07:50)
[2022-05-19 08:00] VITALS: BP 131/86
--- NOTE | 2022-05-19 08:58 | NUR ---
PATIENT HAS BEEN SCREENED AND CATEGORIZED MODERATE NUTRITION RISK. PATIENT WILL BE SEEN WITHIN 3-5 DAYS OF ADMISSION. REVIEWED BY ECTOR GUALLPA RD
[2022-05-19] MEDS: METOPROLOL SUCCINATE 50 MG TABER PO SCH (09:16)
[2022-05-19] MEDS: ASPIRIN 81 MG TAB.CHEW PO SCH (09:17)
[2022-05-19] MEDS: ATORVASTATIN 20 MG TAB PO SCH (09:18)
[2022-05-19] MEDS: FUROSEMIDE 20 MG/2 ML VIAL IVP SCH ×2 (09:19→20:27)
[2022-05-19] MEDS: ENOXAPARIN 80 MG/0.8 ML SYR SUBQ SCH ×2 (09:27→20:30)
--- NOTE | 2022-05-19 09:31 | NUR ---
ALL MORNING MEDICATION ADMINISTERED PER MD ORDER, PT A&OX4. IV PATENT AND INTACT. LUNG SOUNDS CLEAR. BOWEL SOUNDS ACTIVE. NO COMPLAINTS AT THIS TIME. ON 5L NC, DENIES SOB. NO EDEMA NOTED, +2 PEDAL PULSES. REPORTS ALL NEEDS ARE CURRENTLY BEING MET. ALL QUESTIONS HAVE BEEN ANSWERED. MD AT BEDSIDE. ALL SAFETY MEASURES IN PLACE, CALL LIGHT WITHIN REACH. WILL CONTINUE TO MONITOR.
--- NOTE | 2022-05-19 10:55 | NUR ---
AT ROUGHLY 1030, PT WAS ASSISTED BACK INTO BED FROM AMBULATING TO THE RESTROOM. PLACED BACK ON 5L NC. PT STATES FEELING ANXIOUS, OBTAINED VITAL SIGNS, O2 AT 81%, NC INCREASED TO 6L, RT CALLED AND NON REBREATHER OBTAINED. RT AT BEDSIDE AND PLACED PT BACK ON BIPAP MACHINE, NOW SATURATING AT 93%. PT BLOOD PRESSURE IS 123/92, HEART RATE 100. PRN ATIVAN ADMINISTERED PER MD ORDER FOR ANXIETY. PT STATING HE IS FEELING BETTER. ALL SAFETY MEASURES IN PLACE, CALL LIGHT WITHIN REACH. WILL CONTINUE TO MONITOR.
--- NOTE | 2022-05-19 11:24 | NUR ---
IT SECURITY ENGINEER TOOK VITALS, 128/82, 99 HR, 94% O2 SATURATION ON BIPAP MACHINE. PT ASLEEP AT THIS TIME. NO S/S OF ACUTE DISTRESS.
[2022-05-19] MEDS ORDERED: BLOOD GLUCOSE MONITORING 1 DEV DEV FS SCH (11:30)
[2022-05-19] MEDS: INSULIN LISPRO SLIDING SCALE 100 UNITS/ML VIAL SUBQ PRN (11:42)
[2022-05-19 12:00] VITALS: BP 128/74
--- NOTE | 2022-05-19 12:11 | NUR ---
PT AMBULATED OUT OF BED WITHOUT NOTIFYING STAFF, NYLON WINDER ASSISTED PT BACK IN BED AND PLACED BIPAP MACHINE BACK ON. CONNECTED PT BACK TO O2 MONITOR, 92%. EDUCATED PT ON IMPORTANCE OF USING CALL LIGHT, PT DID NOT RESPOND, CLOSED HIS EYES. CALL LIGHT WITHIN REACH. WILL CONTINUE TO MONITOR.
--- NOTE | 2022-05-19 13:26 | NUR ---
ROUNDED ON PT AND SEEN PT ATTEMPTING TO AMBULATE OUT OF BED. EDUCATED ON IMPORTANCE OF USING CALL LIGHT AND NOT TO REMOVE BIPAP MASK. BEDSIDE COMMODE PROVIDED AND EDUCATED ON USE. PT REFUSED TO ACKNOWLEDGE EDUCATION. O2 SATURATION SHOWS 92%. CALL LIGHT WITHIN REACH. WILL CONTINUE TO MONITOR.
--- NOTE | 2022-05-19 14:39 | NUR ---
ROUNDED ON PT, PT ASLEEP IN BED WITH CHEST RISING AND FALLING EVEN AND UNLABORED ON BIPAP MACHINE. O2 SATURATION IS 93%. ON TELE MONITOR SHOWING SR. ALL SAFETY MEASURES IN PLACE, CALL LIGHT WITHIN REACH.
[2022-05-19 16:00] VITALS: BP 121/76
--- NOTE | 2022-05-19 17:06 | NUR ---
BLOOD GLUCOSE 84, NO INSULIN COVERAGE NEEDED. PT ASLEEP, CHEST RISING AND FALLING ON BIPAP 55% o2. SATURATING AT 90%. ALL SAFETY MEASURES IN PLACE, CALL LIGHT WITHIN REACH.
--- NOTE | 2022-05-19 17:33 | NUR ---
RT CALLED FOR OXYGEN DROPPING TO 87%. RT AT BEDSIDE, EDUCATION PROVIDED IN REGARDS TO NOT EATING AT THIS TIME UNTIL PATIENTS OXYGEN IMPROVES DUE TO HOW QUICKLY THE PATIENT WILL DESATURATE. PT NODDED HIS HEAD IN UNDERSTANDING. O2 AT 94%, BED ALARM PLACED ON. ALL SAFETY MEASURES IN PLACE, CALL LIGHT WITHIN REACH.
--- NOTE | 2022-05-19 18:38 | NUR ---
RT AT BEDSIDE, INCREASED BIPAP TO 65%
--- NOTE | 2022-05-19 19:07 | NUR ---
PT ENDORSED TO COMMUNICATIONS EQUIPMENT INSTALLER NURSE FOR CONTINUITY OF CARE, POC DISCUSSED. PT STABLE
--- NOTE | 2022-05-19 19:10 | NUR ---
RECEIVED REPORT FROM DAY SHIFT RN. PT IS AWAKE AND ALERT. PT IS ON BIPAP FIO2 65% SATING AT 95%. PT HAS RIGHT AC 20 GAUGE SALINE LOCK. URINAL BY BEDSIDE AND BEDSIDE COMMODE. PT EDUCATED TO NOT REMOVE BIPAP SINCE HE DE-SATS VERY QUICKLY. CALL FOR HELP FOR ANYTHING. CALL LIGHT WITHIN REACH. POC DISCUSSED. WILL CONTINUE TO MONITOR THE PT.
[2022-05-19 20:00] VITALS: BP 105/81
--- NOTE | 2022-05-19 20:27 | NUR ---
SCHEDULE MEDICATIONS GIVEN. NO ADVERSE REACTION NOTED. WILL CONTINUE TO MONITOR THE PT.
[2022-05-20] VITALS: BP 108/84
--- NOTE | 2022-05-20 00:14 | NUR ---
CHECKED ON PT. PT IS SATING 94% ON BIPAP. PT NOT IN ANY DISTRESS. VISIBLE RISE AND CHEST FALL. CALL LIGHT WITHIN REACH. WILL CONTINUE TO MONITOR THE PT.
[2022-05-20 04:00] VITALS: BP 114/76
--- NOTE | 2022-05-20 04:02 | NUR ---
VITAL SIGNS TAKEN AND STABLE. PT STILL ON BIPAP SATING 96%. PT NOT IN ANY DISTRESS. BREATHING EVEN AND UNLABORED. CALL LIGHT WITHIN REACH. WILL CONTINUE TO MONITOR THE PT.
[2022-05-20 06:39] LABS: BASOPHILS # (AUTO) 0.1 K/uL (0.00-0.22); BASOPHILS % (AUTO) 1.1 % (0.0-2.0); EOSINOPHILS # (AUTO) 0.1 K/uL (0-0.4); EOSINOPHILS % (AUTO) 1.7 % (0.0-4.0); HEMATOCRIT 50.5 % (36-52); HEMOGLOBIN 17.4 g/dL (12.0-18.0); LYMPHOCYTES # (AUTO) 2.6 K/uL (2.0-11.5); LYMPHOCYTES % (AUTO) 33.5 % (20.5-51.1); MEAN CORPUSCULAR HEMOGLOBIN 32 pg (27-31); MEAN CORPUSCULAR HGB CONC 34 g/dL (33-37); MEAN CORPUSCULAR VOLUME 92.9 fL (80-94); MONOCYTES # (AUTO) 1.1 K/uL (0.8-1.0); MONOCYTES % (AUTO) 13.8 % (1.7-9.3); NEUTROPHILS # (AUTO) 3.9 K/uL (1.8-7.7); NEUTROPHILS % (AUTO) 49.9 % (42.2-75.2); PLATELET COUNT (AUTO) 263 K/uL (140-450); RED BLOOD CELL COUNT(AUTO) 5.43 MIL/uL (4.20-6.10); RED CELL DISTRIBUTION WIDTH 13.4 % (11.6-13.7); WHITE BLOOD COUNT (AUTO) 7.8 K/uL (4.8-10.8)
[2022-05-20 06:43] LABS: ANION GAP 17.9 (8-16); CREATININE 1.3 mg/dL (0.6-1.3); POTASSIUM 3.9 mmol/L (3.5-5.1)
[2022-05-20] MEDS: BLOOD GLUCOSE MONITORING 1 DEV DEV FS SCH ×4 (06:44→21:00)
--- NOTE | 2022-05-20 07:10 | NUR ---
ENDORSED PT TO DAY SHIFT RN FOR CONTINUITY OF CARE. PT IS STABLE.
[2022-05-20 08:00] VITALS: BP 120/82
[2022-05-20] MEDS: FUROSEMIDE 20 MG/2 ML VIAL IVP SCH ×2 (08:36→22:42)
[2022-05-20] MEDS: ATORVASTATIN 20 MG TAB PO SCH (08:38)
[2022-05-20] MEDS: METOPROLOL SUCCINATE 50 MG TABER PO SCH (08:39)
[2022-05-20] MEDS: ASPIRIN 81 MG TAB.CHEW PO SCH (08:39)
[2022-05-20] MEDS: ENOXAPARIN 80 MG/0.8 ML SYR SUBQ SCH (08:45)
--- NOTE | 2022-05-20 09:00 | NUR ---
PATIENT COMPLAINS THAT NO PRESSURE ON HIS BIPAP STATES HE FEELS LIKE HE IS NOT GETTING ENOUGH AIR. RT AT BEDSIDE AND PLACED PATIENT ON HI FLOW OXYGEN AT 40LPM, PATIENT IS TOLERATING HI FLOW OXYGEN. SATING 97-98%. NO OTHER COMPLAINTS AT THIS TIME. WILL CONTINUE TO MONITOR.
[2022-05-20 12:00] VITALS: BP 118/75
--- NOTE | 2022-05-20 14:41 | NUR ---
ABG NEEDED DUE TO PT SOB AND NEED FOR FIO2 INCREASED
[2022-05-20 18:00] VITALS: BP 143/87
--- NOTE | 2022-05-20 18:30 | NUR ---
DISCHARGE PLANNING PATIENT IS A 52-YEAR-OLD MALE ADMITTED ON 05/18/2022 AT [facility]/ER DUE TO CONGESTIVE HEARTH FAILURE. LCAC RADAR OPERATOR/NAVIGATOR'S MET WITH PATIENT AT BEDSIDE TO DISCUSS AND GATHER PATIENT'S COLLATERAL INFORMATION. PATIENT WAS AWAKE AND ALERT DURING THE MEETING WITH SW; PATIENT WAS ABLE TO PROVIDE HIS OWN INFORMATION. PER PATIENT HE HAS GOOD FAMILY SUPPORT FROM HIS ADULT DAUGHTER. PER PATIENT HE HAS NO ADVANCE DIRECTIVES IN PLACE AND DECLINED ALL FORMS PROVIDED BY SW. PER PATIENT HIS DAUGTHER VIVEK HENDERSON IS HIS EMERGENCY CONTACT AND HIS MEDICAL DESICION MAKER. PER PATIENT LIVES WITH HIS AUNT AND COUSIN AT THEIR HOME IN [place]. PER PATIENT HE IS INDEPENDENT AND GETS AROUND IN THE HOME. PATIENT STATED THAT HE DO NOT HAVE DME AT HOME. PATIENT ALSO REPORTED THAT HAS NO ISSUES GETTING OR TAKING HIS MEDICATIONS THAT HE PICKS UP IN REGULAR BASIS FROM THE [facility] IN [place] AND [facility] IN [place]. SW EXPLAINED TO PATIENT THE IMPORTANCE OF MAKING A FOLLOW UP APPOINTMENT WITH HIS PCP CECY DIEGO. PER PATIENT HE HAS GOOD RAPPORT WITH HIS PCP AND STATED THAT HIS LAST VISIT WAS ON LAST THIS WEEK 05/18/2022. PER PATIENT HIS DAUGHTER VIVEK WILL BE MAKING A FOLLOW UP APPOINTMENT FOR PATIENT WHEN HE IS DISCHARGED. PER PATIENT HE WANTS TO GO BACK HOME WHEN HE IS READY AND STABLE TO DISCHARGE HOME WITH THE ASSISTANCE OF HIS DAUGHTER WITH TRANSPORTATION BACK HOME. PATIENT IS OPEN FOR MD RECOMMENDATIONS WITH HOME HEALTH. SW THANKED HIM FOR THE INFORMATION AND ENDED THE MEETING. TITUS/CM WILL FOLLOW UP NEEDED.
[2022-05-20 18:52] LABS: APPEARANCE,URINE CLEAR (CLEAR); BILIRUBIN,URINE NEGATIVE (NEGATIVE); BLOOD, URINE NEGATIVE (NEGATIVE); COLOR,URINE YELLOW (YELLOW); LEUKOCYTE ESTERASE ,URINE NEGATIVE (NEGATIVE); NITRITE, URINE NEGATIVE (NEGATIVE); UGLUCOSE NEGATIVE (NEGATIVE)
[2022-05-20] MEDS: ALBUTEROL 0.083% 2.5 MG/3 ML NEBU INH SCH (19:00)
[2022-05-20 19:05] LABS: BARBITURATE, URINE NEGATIVE ng/ml (NEG <=200); BENZODIAZEPINE, URINE POSITIVE ng/mL (NEG <=200); CANNABINOID, URINE NEGATIVE ng/mL (NEG <=50); COCAINE, URINE NEGATIVE ng/mL (NEG <=300); OPIATE, URINE NEGATIVE ng/mL (NEG <=2000); PHENCYCLIDINE SCREEN,URINE NEGATIVE ng/mL (NEG <=25)
[2022-05-20 20:00] VITALS: BP 118/88
[2022-05-20] MEDS: INSULIN LISPRO SLIDING SCALE 100 UNITS/ML VIAL SUBQ PRN (22:48)
[2022-05-21] VITALS: BP 110/84
--- NOTE | 2022-05-21 03:32 | NUR ---
RECEIVED PATIENT REPORT FROM NURSE LOO FOR CONTINUITY OF CARE. PATIENT IS SLEEPING ON HIGH FLOW O2 40L. NO S/S OF RESPIRATORY DISTRESS. BREATHING NORMAL NON LABORED. IV ACCESS ON THE ANT 20 GAUGE SALINE LOCK. SAFETY MEASURES IN PLACE. CALL LIGHT IN REACH.
[2022-05-21 04:00] VITALS: BP 110/84
[2022-05-21] MEDS: BLOOD GLUCOSE MONITORING 1 DEV DEV FS SCH ×4 (06:31→20:16)
--- NOTE | 2022-05-21 06:31 | NUR ---
CHECKED BLOOD SUGAR WAS 139, NO INSULIN COVERAGE GIVEN.
[2022-05-21 07:06] LABS: BASOPHILS # (AUTO) 0.2 K/uL (0.00-0.22); EOSINOPHILS # (AUTO) 0.2 K/uL (0-0.4); EOSINOPHILS % (AUTO) 2.4 % (0.0-4.0); HEMATOCRIT 55.1 % (36-52); HEMOGLOBIN 18.5 g/dL (12.0-18.0); LYMPHOCYTES # (AUTO) 2.7 K/uL (2.0-11.5); LYMPHOCYTES % (AUTO) 33.3 % (20.5-51.1); MEAN CORPUSCULAR HEMOGLOBIN 32 pg (27-31); MEAN CORPUSCULAR HGB CONC 34 g/dL (33-37); MEAN CORPUSCULAR VOLUME 93.8 fL (80-94); MONOCYTES # (AUTO) 1.1 K/uL (0.8-1.0); MONOCYTES % (AUTO) 13.5 % (1.7-9.3); NEUTROPHILS % (AUTO) 48.8 % (42.2-75.2); PLATELET COUNT (AUTO) 283 K/uL (140-450); RED BLOOD CELL COUNT(AUTO) 5.87 MIL/uL (4.20-6.10); RED CELL DISTRIBUTION WIDTH 13.1 % (11.6-13.7); WHITE BLOOD COUNT (AUTO) 8.2 K/uL (4.8-10.8)
[2022-05-21 07:09] LABS: ANION GAP 14.7 (8-16); CREATININE 1.5 mg/dL (0.6-1.3); POTASSIUM 3.7 mmol/L (3.5-5.1)
--- NOTE | 2022-05-21 07:13 | NUR ---
BEDSIDE REPORT GIVEN TO DAY SHIFT NURSE RIZWANA FOR CONTINUITY OF CARE.
--- NOTE | 2022-05-21 07:14 | NUR ---
RECEIVED PT FROM SENIOR PIPING DESIGNER NURSE FOR CONTINUITY OF CARE. PT IN BED SLEEPING. VISIBLE CHEST RISE/FALL. RESPIRATIONS EVEN AND UNLABORED ON HI FLOW 40L SATURATING AT 96%. IV ON L UPPER ARM 20G, SL. CALL LIGHT WITHIN REACH. ALL SAFETY PRECAUTIONS IN PLACE.
[2022-05-21] MEDS: ALBUTEROL 0.083% 2.5 MG/3 ML NEBU INH SCH ×3 (07:19→19:56)
[2022-05-21 08:00] VITALS: BP 130/75
[2022-05-21] MEDS: ENOXAPARIN 40 MG/0.4 ML SYR SUBQ SCH (08:34)
[2022-05-21] MEDS: METOPROLOL SUCCINATE 50 MG TABER PO SCH (08:35)
[2022-05-21] MEDS: ASPIRIN 81 MG TAB.CHEW PO SCH (08:35)
[2022-05-21] MEDS: ATORVASTATIN 20 MG TAB PO SCH (08:35)
--- NOTE | 2022-05-21 08:36 | NUR ---
ADMINISTERED ALL DUE MEDS. PROVIDED TEACHING REGARDING MEDS TAKING. PT TOLERATING WELL.
[2022-05-21] MEDS: FUROSEMIDE 20 MG/2 ML VIAL IVP SCH ×2 (09:00→20:21)
[2022-05-21] MEDS: INSULIN LISPRO SLIDING SCALE 100 UNITS/ML VIAL SUBQ PRN ×3 (11:46→20:18)
--- NOTE | 2022-05-21 11:49 | NUR ---
ADMINISTERED INSULIN PER SLIDING SCALE.
[2022-05-21 12:00] VITALS: BP 140/84
--- NOTE | 2022-05-21 13:14 | NUR ---
PT REQUESTED TO USE BATHROOM, PT CONNECTED TO HI FLOW O2, IT DOES NOT REACH TO RESTROOM. PT STATES "YESTERDAY I USED THE RESTROOM AND TOOK OFF MY OXYGEN AND NOTHING HAPPENED" PROVIDED PT TEACHING ABOUT HI- FLOW O2 AND RISK OF DESATURATION. ENCOURAGED PT TO USE BEDSIDE COMMODE INSTEAD. BEDSIDE COMMODE USED. PT BACK IN BED.
--- NOTE | 2022-05-21 14:46 | NUR ---
VISITOR AT BEDSIDE.
[2022-05-21 16:00] VITALS: BP 119/79
--- NOTE | 2022-05-21 16:24 | NUR ---
ADMINISTERED INSULIN PER SLIDING SCALE.
--- NOTE | 2022-05-21 18:17 | NUR ---
MAKING ROUNDS. PT EATING DINNER. CALL LIGHT WITHIN REACH.
--- NOTE | 2022-05-21 19:08 | NUR ---
ENDORSED PT TO CHIEF RECORDIST NURSE FOR CONTINUITY OF CARE. PT IN STABLE CONDITION.
--- NOTE | 2022-05-21 19:10 | NUR ---
RECEIVED PATIENT FROM AM NURSE. PATIENT AWAKE WELL RESTED ON HI FLOW O2 40L SATING 99%. NO SOB. PERIPHERAL IV TO THE ANT SALINE LOCK. NO COMPLAINTS OF PAIN AT THIS TIME. CALL LIGHT WITHIN REACH.
[2022-05-21 20:00] VITALS: BP 112/73
--- NOTE | 2022-05-21 20:01 | NUR ---
PT WAS SEEN AND ASSESSED. PT WAS AWAKE AND ALERT IN BED. PT ON HIGH FLOW NASAL CANNULAR 40L, 36% WITH SPO2 OF 94%. NO RESPIRATORY DISTRESS NOTED AT THIS TIME. SCHEDULE HHN TX WAS GIVEN ORDERED AND PT TOLERATED WELL WITHOUT ANY ADVERSE REACTION. WILL CONTINUE TO MONITOR PT.
--- NOTE | 2022-05-21 20:16 | NUR ---
BLOOD SUGAR CHECKED WAS 243, ADMINISTERED HUMALOG INSULIN ORDERED PER SLIDING SCALE.
--- NOTE | 2022-05-21 20:21 | NUR ---
ADMINISTERED SCHEDULED MEDICATIONS.
[2022-05-22] VITALS: BP 106/77
[2022-05-22] MEDS: ALBUTEROL 0.083% 2.5 MG/3 ML NEBU INH SCH ×4 (00:21→19:00)
[2022-05-22 04:00] VITALS: BP 107/74
[2022-05-22] MEDS: BLOOD GLUCOSE MONITORING 1 DEV DEV FS SCH ×4 (06:39→20:21)
[2022-05-22] MEDS: INSULIN LISPRO SLIDING SCALE 100 UNITS/ML VIAL SUBQ PRN ×3 (06:40→20:22)
--- NOTE | 2022-05-22 07:01 | NUR ---
ENDORSED PATIENT TO DAY SHIFT NURSE RIZWANA FOR CONTINUITY OF CARE.
--- NOTE | 2022-05-22 07:02 | NUR ---
RECEIVED PT FROM PERSONAL LINES INSURANCE ADVISOR NURSE FOR CONTINUITY OF CARE.
[2022-05-22 07:16] LABS: ANION GAP 16.2 (8-16); CARBON DIOXIDE 24.6 mmol/L (21-32); CREATININE 1.3 mg/dL (0.6-1.3); POTASSIUM 3.8 mmol/L (3.5-5.1)
[2022-05-22 07:19] LABS: BASOPHILS # (AUTO) 0.1 K/uL (0.00-0.22); BASOPHILS % (AUTO) 1.1 % (0.0-2.0); EOSINOPHILS # (AUTO) 0.2 K/uL (0-0.4); EOSINOPHILS % (AUTO) 2.2 % (0.0-4.0); HEMATOCRIT 54.8 % (36-52); HEMOGLOBIN 18.8 g/dL (12.0-18.0); LYMPHOCYTES # (AUTO) 2.8 K/uL (2.0-11.5); LYMPHOCYTES % (AUTO) 36.4 % (20.5-51.1); MEAN CORPUSCULAR HEMOGLOBIN 32 pg (27-31); MEAN CORPUSCULAR HGB CONC 34 g/dL (33-37); MEAN CORPUSCULAR VOLUME 92.5 fL (80-94); MONOCYTES % (AUTO) 13.1 % (1.7-9.3); NEUTROPHILS # (AUTO) 3.6 K/uL (1.8-7.7); NEUTROPHILS % (AUTO) 47.2 % (42.2-75.2); PLATELET COUNT (AUTO) 277 K/uL (140-450); RED BLOOD CELL COUNT(AUTO) 5.93 MIL/uL (4.20-6.10); WHITE BLOOD COUNT (AUTO) 7.7 K/uL (4.8-10.8)
[2022-05-22 08:00] VITALS: BP 121/73
--- NOTE | 2022-05-22 08:10 | NUR ---
pt is on hfnc 40l 34% vital signs hr 79 spo2 995%. no respiratory distress noted. will continue to monitor.
[2022-05-22] MEDS: ASPIRIN 81 MG TAB.CHEW PO SCH (08:25)
[2022-05-22] MEDS: ATORVASTATIN 20 MG TAB PO SCH (08:25)
[2022-05-22] MEDS: METOPROLOL SUCCINATE 50 MG TABER PO SCH (08:26)
[2022-05-22] MEDS: ENOXAPARIN 40 MG/0.4 ML SYR SUBQ SCH (08:26)
--- NOTE | 2022-05-22 08:34 | NUR ---
PT AWAKE, AND ABLE TO VERBALIZE NEEDS, SKIN WARM AND DRY TO TOUCH. RESPIRATIONS EVEN AND UNLABORED ON HI-FLOW O2 40L, SATURATING AT 97%. NO SOB OR DISTRESS NOTED. PT DENIES ANY PAIN .ADMINISTERED SCHEDULED MEDICATIONS. PT TOLERATING WELL. CALL LIGHT WITHIN REACH. ALL SAFETY PRECAUTIONS IN PLACE.
[2022-05-22] MEDS: FUROSEMIDE 20 MG/2 ML VIAL IVP SCH ×2 (09:55→20:19)
--- NOTE | 2022-05-22 10:20 | NUR ---
PER DR COPE FIRER AUTOMATIC STOKER. PT TO BE TAKEN OFF HI FLOW AND ON 2L VIA NC. PT NOW ON 2L N/C SATURATING AT 94%
[2022-05-22 12:00] VITALS: BP 107/76
--- NOTE | 2022-05-22 15:46 | NUR ---
05/22/22 RD INITIAL ASSESSMENT COMPLETED. PLEASE REFER TO NUTRITION ASSESSMENT UNDER CARE ACTIVITY FOR ESTIMATED NUTRITIONAL NEEDS. 1. RECOMMEND ADDING CCHO TO CARDIAC DIET. 2. MONITOR BLOOD GLUCOSE 3. RD TO FOLLOW-UP 3-5 DAYS, MODERATE RISK JENNIFER CRAMER RD
[2022-05-22 16:00] VITALS: BP 110/75
--- NOTE | 2022-05-22 16:30 | NUR ---
PT BLOOD SUGAR CHECK DONE BS 144; NO INSULIN COVERAGE NEEDED.
--- NOTE | 2022-05-22 19:20 | NUR ---
ENDORSED PT TO BAND TEACHER NURSE FOR CONTINUITY OF CARE. PT IN STABLE CONDITION.
--- NOTE | 2022-05-22 19:59 | NUR ---
PATIENT IN BED RESTING COMFORTABLY ON 2L NC. NO DISTRESS NOTED. DENIES PAIN. AFEBRILE. PATIENT ABLE TO COMMUNICATE WITH HIS NEEDS. ENCOURAGED TO USE CALL LIGHT FOR ASSISTANCE. CALL LIGHT IN REACH. VISITOR AT BEDSIDE. SAFETY PRECAUTIONS ARE IN PLACE.
[2022-05-22 20:00] VITALS: BP 116/70
--- NOTE | 2022-05-22 20:19 | NUR ---
SCHEDULED MEDICATIONS ADMINISTERED.
--- NOTE | 2022-05-22 20:21 | NUR ---
BLOOD SUGAR CHECKED WAS 184. ADMINISTERED HUMALOG INSULIN ORDERED PER SLIDING SCALE.
[2022-05-23] VITALS: BP 110/68
[2022-05-23] MEDS: ALBUTEROL 0.083% 2.5 MG/3 ML NEBU INH SCH ×4 (01:00→19:33)
--- NOTE | 2022-05-23 02:41 | NUR ---
PT POLITELY REFUSED MED STATING HE IS OK AND WOULD RATHER SLEEP PT INFORMED SHOULD HE FEEL SOB TO CALL AND I WOULD RETURN PT RESTING COMFORTABLY ON 2LNC W/ DORETHA CLR BS
[2022-05-23 04:00] VITALS: BP 110/66
[2022-05-23 06:35] LABS: BASOPHILS # (AUTO) 0.1 K/uL (0.00-0.22); BASOPHILS % (AUTO) 1.4 % (0.0-2.0); EOSINOPHILS # (AUTO) 0.2 K/uL (0-0.4); EOSINOPHILS % (AUTO) 2.9 % (0.0-4.0); HEMATOCRIT 57.1 % (36-52); HEMOGLOBIN 19.6 g/dL (12.0-18.0); LYMPHOCYTES # (AUTO) 2.9 K/uL (2.0-11.5); LYMPHOCYTES % (AUTO) 37.5 % (20.5-51.1); MEAN CORPUSCULAR HEMOGLOBIN 31 pg (27-31); MEAN CORPUSCULAR HGB CONC 34 g/dL (33-37); MEAN CORPUSCULAR VOLUME 91.6 fL (80-94); MONOCYTES # (AUTO) 1.1 K/uL (0.8-1.0); MONOCYTES % (AUTO) 15.1 % (1.7-9.3); NEUTROPHILS # (AUTO) 3.3 K/uL (1.8-7.7); NEUTROPHILS % (AUTO) 43.1 % (42.2-75.2); PLATELET COUNT (AUTO) 274 K/uL (140-450); RED BLOOD CELL COUNT(AUTO) 6.24 MIL/uL (4.20-6.10); RED CELL DISTRIBUTION WIDTH 13.2 % (11.6-13.7); WHITE BLOOD COUNT (AUTO) 7.6 K/uL (4.8-10.8)
[2022-05-23] MEDS: BLOOD GLUCOSE MONITORING 1 DEV DEV FS SCH ×4 (06:39→20:51)
[2022-05-23] MEDS: INSULIN LISPRO SLIDING SCALE 100 UNITS/ML VIAL SUBQ PRN ×4 (06:39→20:52)
[2022-05-23 07:00] LABS: ANION GAP 17.1 (8-16); CARBON DIOXIDE 26.2 mmol/L (21-32); CREATININE 1.4 mg/dL (0.6-1.3); POTASSIUM 4.3 mmol/L (3.5-5.1)
--- NOTE | 2022-05-23 07:22 | NUR ---
GAVE REPORT TO MORNING SHIFT NURSE FOR CONTINUITY OF CARE. PATIENT IN STABLE CONDITION.
--- NOTE | 2022-05-23 07:23 | NUR ---
RECEIVED PT FROM RANGE MECHANIC NURSE FOR CONTINUITY OF CARE. PT AWAKE, SITTING IN BED. ABLE TO VERBALIZE NEEDS. RESPIRATIONS EVEN AND UNLABORED ON 2L N/C. SKIN WARM AND DRY TO TOUCH. NO C/O SOB OR PAIN. CALL LIGHT WITHIN REACH. ALL SAFETY PRECAUTIONS IN PLACE.
[2022-05-23 08:00] VITALS: BP 146/73
[2022-05-23] MEDS: ATORVASTATIN 20 MG TAB PO SCH (08:30)
[2022-05-23] MEDS: ASPIRIN 81 MG TAB.CHEW PO SCH (08:30)
[2022-05-23] MEDS: METOPROLOL SUCCINATE 50 MG TABER PO SCH (08:31)
[2022-05-23] MEDS: ENOXAPARIN 40 MG/0.4 ML SYR SUBQ SCH (08:34)
--- NOTE | 2022-05-23 08:37 | NUR ---
ADMINISTERED ALL SCHEDULED MEDS. PT TOLERATING WELL.
[2022-05-23] MEDS: FUROSEMIDE 20 MG/2 ML VIAL IVP SCH ×2 (10:01→20:49)
[2022-05-23 12:00] VITALS: BP 125/94
--- NOTE | 2022-05-23 14:04 | NUR ---
MAKING ROUNDS, PT IN BED AWAKE AND ON PHONE. CALL LIGHT WITHIN REACH.
[2022-05-23 16:00] VITALS: BP 114/73
--- NOTE | 2022-05-23 16:34 | NUR ---
ADMINISTERED INSULIN PER SLIDING SCALE.
--- NOTE | 2022-05-23 19:29 | NUR ---
ENDORSED PT TO SHIP'S MASTER NURSE FOR CONTINUITY OF CARE. PT IN STABLE CONDITION.
[2022-05-23 20:00] VITALS: BP 113/80
--- NOTE | 2022-05-23 20:49 | NUR ---
PATIENT AAOX4 IN BED RESTING IN ROOM AIR SATING 95%. NO SOB. BREATHING NORMAL UNLABORED. NO COMPLAINTS OF PAIN. CALL LIGHT WITHIN REACH. SCHEDULED MEDICATION ADMINISTERED.
[2022-05-24] VITALS: BP 99/74
[2022-05-24] MEDS: ALBUTEROL 0.083% 2.5 MG/3 ML NEBU INH SCH ×3 (01:33→13:00)
[2022-05-24 04:00] VITALS: BP 118/76
[2022-05-24] MEDS: INSULIN LISPRO SLIDING SCALE 100 UNITS/ML VIAL SUBQ PRN ×2 (06:35→11:39)
[2022-05-24] MEDS: BLOOD GLUCOSE MONITORING 1 DEV DEV FS SCH ×2 (06:35→11:36)
--- NOTE | 2022-05-24 06:38 | NUR ---
BLOOD SUGAR CHECKED WAS 158. ADMINISTERED HUMALOG INSULIN ORDERED PER SLIDING SCALE.
--- NOTE | 2022-05-24 07:03 | NUR ---
ENDORSED PATIENT TO MORNING SHIFT NURSE FOR CONTINUITY OF CARE.
--- NOTE | 2022-05-24 07:04 | NUR ---
RECEIVED PT FROM MARKETING DIRECTOR ASSISTED LIVING NURSE FOR CONTINUITY OF CARE. PT IN BED SLEEPING. VISIBLE CHEST RISE/FALL, RESPIRATIONS EVEN AND UNLABORED. ON RA SATURATING AT 94%. NO DISTRESS NOTED. CALL LIGHT WITHIN REACH, ALL SAFETY PRECAUTIONS IN PLACE.
[2022-05-24 07:35] LABS: BASOPHILS # (AUTO) 0.1 K/uL (0.00-0.22); BASOPHILS % (AUTO) 1.1 % (0.0-2.0); EOSINOPHILS # (AUTO) 0.2 K/uL (0-0.4); EOSINOPHILS % (AUTO) 2.5 % (0.0-4.0); HEMOGLOBIN 19.3 g/dL (12.0-18.0); LYMPHOCYTES # (AUTO) 2.7 K/uL (2.0-11.5); LYMPHOCYTES % (AUTO) 37.8 % (20.5-51.1); MEAN CORPUSCULAR HEMOGLOBIN 32 pg (27-31); MEAN CORPUSCULAR HGB CONC 34 g/dL (33-37); MEAN CORPUSCULAR VOLUME 91.9 fL (80-94); MONOCYTES # (AUTO) 1.2 K/uL (0.8-1.0); MONOCYTES % (AUTO) 16.4 % (1.7-9.3); NEUTROPHILS # (AUTO) 3.1 K/uL (1.8-7.7); NEUTROPHILS % (AUTO) 42.2 % (42.2-75.2); PLATELET COUNT (AUTO) 275 K/uL (140-450); RED CELL DISTRIBUTION WIDTH 13.3 % (11.6-13.7); WHITE BLOOD COUNT (AUTO) 7.2 K/uL (4.8-10.8)
--- NOTE | 2022-05-24 07:49 | NUR ---
Patient's Plan of Care was discussed and reviewed with BUSINESS OPERATIONS SPECIALIST:
[2022-05-24 07:59] LABS: ANION GAP 14.1 (8-16); CARBON DIOXIDE 28.7 mmol/L (21-32); CREATININE 1.6 mg/dL (0.6-1.3); POTASSIUM 3.8 mmol/L (3.5-5.1)
[2022-05-24 08:00] VITALS: BP 126/83
[2022-05-24] MEDS: ASPIRIN 81 MG TAB.CHEW PO SCH (08:35)
[2022-05-24] MEDS: METOPROLOL SUCCINATE 50 MG TABER PO SCH (08:36)
[2022-05-24] MEDS: ATORVASTATIN 20 MG TAB PO SCH (08:36)
[2022-05-24] MEDS: ENOXAPARIN 40 MG/0.4 ML SYR SUBQ SCH (08:39)
[2022-05-24] MEDS ORDERED: FURO-570 PO (09:20)
[2022-05-24] MEDS ORDERED: ATOR20TA40 PO (09:20)
[2022-05-24] MEDS ORDERED: METF-346 PO (09:20)
[2022-05-24] MEDS ORDERED: METO50TE2 PO (09:20)
[2022-05-24] MEDS ORDERED: ASPI81CT95 PO (09:20)
[2022-05-24] MEDS: FUROSEMIDE 20 MG/2 ML VIAL IVP SCH (09:55)
[2022-05-24 10:43] VITALS: BP 126/83
[2022-05-24 12:29] VITALS: BP 136/78
--- NOTE | 2022-05-24 14:33 | NUR ---
DISCHARGE PACKET DISCUSSED WITH PT, BELONGINGS GATHERED AND TAKEN. PT IN STABLE CONDITION. IV AND NAME BAND REMOVED. PT AMBULATED TO [facility]. PT DC TO HOME.
== END 2022-05-24 14:35 | disposition home or self-care (01) | DRG 194 ==
LOC: MED 19:39 → MTU 23:47
PROVIDERS: ADMIT Family Medicine; ATTEND Family Medicine
PROC: 5A09357 Assistance with Respiratory Ventilation, Less than 24 Consecutive Hours, Continuous Positive Airway Pressure (ICD-10-PCS; principal; 2022-05-18)
PROC: 5A09357 Assistance with Respiratory Ventilation, Less than 24 Consecutive Hours, Continuous Positive Airway Pressure (ICD-10-PCS; 2022-05-19)
PROC: 5A09357 Assistance with Respiratory Ventilation, Less than 24 Consecutive Hours, Continuous Positive Airway Pressure (ICD-10-PCS; 2022-05-20)
PROC: 5A09457 Assistance with Respiratory Ventilation, 24-96 Consecutive Hours, Continuous Positive Airway Pressure (ICD-10-PCS; 2022-05-20)
PROC: 5A0935A Assistance with Respiratory Ventilation, Less than 24 Consecutive Hours, High Flow/Velocity Cannula (ICD-10-PCS; 2022-05-21)
PROC: 5A0935A Assistance with Respiratory Ventilation, Less than 24 Consecutive Hours, High Flow/Velocity Cannula (ICD-10-PCS; 2022-05-22)
DX: I11.0 Hypertensive heart disease with heart failure (principal); J96.01 Acute respiratory failure with hypoxia; I21.4 Non-ST elevation (NSTEMI) myocardial infarction; E86.0 Dehydration; I42.9 Cardiomyopathy, unspecified; R65.10 Systemic inflammatory response syndrome (SIRS) of non-infectious origin without acute organ dysfunction; I50.23 Acute on chronic systolic (congestive) heart failure; J44.1 Chronic obstructive pulmonary disease with (acute) exacerbation; I45.10 Unspecified right bundle-branch block; F15.10 Other stimulant abuse, uncomplicated; Z20.822 Contact with and (suspected) exposure to COVID-19; Z90.49 Acquired absence of other specified parts of digestive tract; Z79.84 Long term (current) use of oral hypoglycemic drugs; Z79.899 Other long term (current) drug therapy; Z79.1 Long term (current) use of non-steroidal anti-inflammatories (NSAID)
CPT/HCPCS: 36415; 36600; 71045; 71275; 80048; 80305; 81003; 82803; 82948; 83036; 83735; 83880; 84484; 85025; 87081; 93005; 94640; 94660; 96374; 99291; J1650; J1940; J2060; J2270; J7613; Q0092; Q9967

== ENCOUNTER 2022-07-30 00:14 | Inpatient (IN) | payer MEDICAID ==
[~2022-07-30] VITALS: Ht 167.6 cm; Wt 84.8 kg
[2022-07-30] VITALS (19 sets, daily range): BP systolic 86–136; BP diastolic 28–97
[~2022-07-30 00:14] MED LIST changes: -AMOX-999 PO; +ASPI81CT95 PO; +ATOR20TA40 PO; -DOCU-299 PO; -IBUP-2213 PO
--- NOTE | 2022-07-30 00:22 | NUR ---
STAT EKG in triage room.
--- NOTE | 2022-07-30 00:25 | NUR ---
Patient taken to bed 10.
--- NOTE | 2022-07-30 00:27 | NUR ---
Dr. Miranda examining patient.
[2022-07-30] MEDS ORDERED: ADENOSINE 6 MG/2 ML VIAL IVP ONE ×3 (00:29→00:45)
--- NOTE | 2022-07-30 00:33 | NUR ---
Given Adenosine 6 mg IV push as verbal order by Dr. Miranda.
--- NOTE | 2022-07-30 00:36 | NUR ---
Given Adenosine 12 mg IV push as verbal order by Dr. Miranda.
[2022-07-30] MEDS ORDERED: DILTIAZEM 25 MG/5 ML VIAL IVP ONE ×3 (00:38→14:15)
--- NOTE | 2022-07-30 00:40 | NUR ---
Given Diltiazem 25 mg IV slow push as verbal order by Dr. Miranda.
[2022-07-30] MEDS ORDERED: NACL 0.9% 1,000 ML IV ONE (00:50)
[2022-07-30 01:02] LABS: BASOPHILS # (AUTO) 0.1 K/uL (0.00-0.22); BASOPHILS % (AUTO) 1.3 % (0.0-2.0); EOSINOPHILS % (AUTO) 0.4 % (0.0-4.0); HEMATOCRIT 49.9 % (36-52); HEMOGLOBIN 16.7 g/dL (12.0-18.0); LYMPHOCYTES # (AUTO) 2.4 K/uL (2.0-11.5); LYMPHOCYTES % (AUTO) 25.7 % (20.5-51.1); MEAN CORPUSCULAR HEMOGLOBIN 32 pg (27-31); MEAN CORPUSCULAR HGB CONC 33 g/dL (33-37); MEAN CORPUSCULAR VOLUME 95.1 fL (80-94); MONOCYTES # (AUTO) 1.1 K/uL (0.8-1.0); MONOCYTES % (AUTO) 11.8 % (1.7-9.3); NEUTROPHILS # (AUTO) 5.7 K/uL (1.8-7.7); NEUTROPHILS % (AUTO) 60.8 % (42.2-75.2); PLATELET COUNT (AUTO) 246 K/uL (140-450); RED BLOOD CELL COUNT(AUTO) 5.24 MIL/uL (4.20-6.10); RED CELL DISTRIBUTION WIDTH 15.2 % (11.6-13.7); WHITE BLOOD COUNT (AUTO) 9.3 K/uL (4.8-10.8)
--- NOTE | 2022-07-30 01:23 | NUR ---
X-Ray at bedside.
--- NOTE | 2022-07-30 01:27 | NUR ---
RT at bedside.
[2022-07-30 02:17] LABS: ALBUMIN 3.3 g/dL (3.4-5.0); ANION GAP 15.9 (8-16); ASPARTATE AMINOTRANSFERASE 51 U/L (15-37); CARBON DIOXIDE 21.3 mmol/L (21-32); CHLORIDE 107 mmol/L (98-107); CREATININE 1.6 mg/dL (0.6-1.3); GFR ARICAN-AMERICAN 58 mL/min (>90); GLUCOSE 211 mg/dL (74-106); MAGNESIUM 1.7 mg/dL (1.8-2.4); PHOSPHORUS 5.2 mg/dL (2.5-4.9); POTASSIUM 4.2 mmol/L (3.5-5.1); SODIUM SERUM 140 mmol/L (136-145); THYROID STIMULATING HORMONE 2.73 uIU/mL (0.34-3.74); TOTAL BILIRUBIN 1.8 mg/dL (0.0-1.0); UREA NITROGEN, BLOOD 28 mg/dL (7-18)
--- NOTE | 2022-07-30 02:25 | NUR ---
CL value for Troponin called in by lab. Result: 93 Reported to MD Miranda.
[2022-07-30] MEDS ORDERED: MAG SULF 2000 MG/WATER PREMIX 50 ML IV ONE (02:30)
--- NOTE | 2022-07-30 04:42 | NUR ---
Note leoone in EDM - 07/30/22 at 0453 by LINETTE Patient discharged with v/s stable. Written and verbal after care instructions given and explained. Patient alert, oriented and verbalized understanding of instructions. Ambulatory with steady gait. All questions addressed prior to discharge. ID band removed. Patient advised to follow up with PMD. Rx of [place] given. Patient educated on indication of medication including possible reaction and side effects. Opportunity to ask questions provided and answered.
[2022-07-30] MEDS ORDERED: ALBUTEROL 0.083% 2.5 MG/3 ML NEBU INH PRN (05:55)
[2022-07-30] MEDS ORDERED: POTASSIUM CHLORIDE 10 MEQ TABER PO PRN (07:35)
[2022-07-30] MEDS ORDERED: INSULIN LISPRO SLIDING SCALE 100 UNITS/ML VIAL SUBQ PRN (07:35)
[2022-07-30] MEDS ORDERED: MORPHINE SULFATE 2 MG/ML SYR IVP PRN (07:35)
[2022-07-30] MEDS ORDERED: ACETAMINOPHEN 325 MG TAB PO PRN (07:35)
[2022-07-30] MEDS ORDERED: MAG SULF 2000 MG/WATER PREMIX 50 ML IV PRN (07:35)
[2022-07-30] MEDS ORDERED: ONDANSETRON 4 MG/2 ML VIAL IVP PRN (07:35)
[2022-07-30] MEDS ORDERED: LORazepam 2 MG/ML VIAL IVP PRN (07:35)
[2022-07-30] MEDS ORDERED: DOCUSATE SODIUM 100 MG GELCAP PO PRN (07:35)
--- NOTE | 2022-07-30 07:36 | NUR ---
RECIEVED PT ON BIPAP 03/02 RR 16 100% . CHANGED SETTING TO 12/6 DUE TO PT HIGH TIDAL VOLUME. PT IS SOB AND WAS GIVEN A BREATHING TX. PT WILL BE TRANSFERRED TO ICU SOON
--- NOTE | 2022-07-30 08:14 | NUR ---
52 years old male biba from home with substance abuse in svt condition improved after er treatment, vss stable for transfer to ICU bed 5.
[2022-07-30] MEDS ORDERED: ZOLPIDEM 5 MG TAB PO PRN (08:30)
--- NOTE | 2022-07-30 08:35 | NUR ---
PT PLACED ON NONREBREATHER DUE TO LOW SATURATION.
--- NOTE | 2022-07-30 08:44 | NUR ---
RECEIVED BEDSIDE REPORT FROM COLORER FOR CONTINUITY OF CARE. PT ALERT AND ORIENTED. PERRLA, PUPILS 3MM SLUGGISH RESPONSE TO LIGHT. ARRIVED TO UNIT ON NONREBREATHER AND SWITCHED TO 1L NC BY RT. ST ON MONITOR. 18G IV TO RAC PATENT INTACT. NO EDEMA NOTED. CONTINENT OF BOWEL AND BLADDER. ABD SOFT NONTENDER. MILD WEAKNESS THROUGHOUT. STANDARD PRECAUTION. CALL LIGHT WITHIN REACH, HOB 30 DEGREES, BED WHEELS LOCKED AND IN LOWEST POSITION.
--- NOTE | 2022-07-30 08:55 | NUR ---
report given to nurse gamboa at bedside all questions answered.
[2022-07-30] MEDS ORDERED: FUROSEMIDE 40 MG/4 ML VIAL IVP SCH (09:00)
[2022-07-30] MEDS: METOPROLOL SUCCINATE 50 MG TABER PO SCH (09:14)
[2022-07-30] MEDS: ATORVASTATIN 20 MG TAB PO SCH (09:14)
[2022-07-30] MEDS: ASPIRIN 81 MG TAB.CHEW PO SCH (09:14)
--- NOTE | 2022-07-30 11:35 | NUR ---
PT PLACED ON HIGH FLOW DUE TO WORK OF BREATHING AND ABG RESULTS
[2022-07-30] MEDS: BLOOD GLUCOSE MONITORING 1 DEV DEV FS SCH ×3 (12:15→20:39)
--- NOTE | 2022-07-30 14:12 | NUR ---
PT WITH EPISODE OF SUSTAINED SVT, HR 170-180. CALLED DR TORIBIO TO NOTIFY. ORDERS FOR 10MG IVP CARDIZEM RECEIVED.
--- NOTE | 2022-07-30 14:20 | NUR ---
PT CONVERTED TO NSR.
[2022-07-30] MEDS ORDERED: DILTIAZEM 25 MG/5 ML VIAL IVP SCH (14:30)
[2022-07-30] MEDS ORDERED: PROPOFOL 1000 MG/100 ML PREMIX 100 ML IV ONE (14:39)
[2022-07-30] MEDS: PROPOFOL 1000 MG/100 ML PREMIX 100 ML IV PRN ×2 (14:45→20:00)
--- NOTE | 2022-07-30 14:45 | NUR ---
PT INTUBATED BY Ariana MARTINEZ
[2022-07-30] MEDS ORDERED: fentaNYL citrate 1 MG in NACL 0.9% 80 ML IV PRN (15:05)
[2022-07-30] MEDS ORDERED: SUCCINYLCHOLINE CHLORIDE 200 MG/10 ML VIAL IVP ONE (15:05)
[2022-07-30] MEDS ORDERED: ETOMIDATE 20 MG/10 ML VIAL IVP ONE (15:05)
[2022-07-30] MEDS ORDERED: fentaNYL citrate 0.05 MG/ML VIAL ONE (15:11)
[2022-07-30] MEDS ORDERED: MIDAZOLAM 2 MG/2 ML VIAL ONE (15:11)
[2022-07-30] MEDS ORDERED: MIDAZOLAM 2 MG/2 ML VIAL IV ONE (15:20)
[2022-07-30] MEDS ORDERED: fentaNYL citrate 0.05 MG/ML VIAL IVP ONE (15:20)
--- NOTE | 2022-07-30 16:05 | NUR ---
PAGED DR. PRETTY REGARDING PT STATUS. AWAITING RETURN PHONE CALL.
--- NOTE | 2022-07-30 16:22 | NUR ---
CALLED DR. VERMA TO NOTIFY OF HYPOXIA. ORDERS RECEIVED.
--- NOTE | 2022-07-30 16:24 | NUR ---
PAGE RETURNED BY DR. PRETTY. ORDERS RECEIVED.
[2022-07-30] MEDS ORDERED: HEPARIN PER PHARMACY MC PRN (16:25)
[2022-07-30] MEDS ORDERED: hePARIN / DEXT 5% PREMIX 250 ML IV SCH (16:25)
--- NOTE | 2022-07-30 16:25 | NUR ---
CHANGES MADE TO VENT SETTINGS PER MD PRETTY.
--- NOTE | 2022-07-30 16:30 | NUR ---
FAMILY AT BEDSIDE. UPDATED ON POC AND PT STATUS. NO FURTHER QUESTIONS AT THIS TIME.
[2022-07-30] MEDS: FUROSEMIDE 40 MG/4 ML VIAL IVP SCH (18:16)
--- NOTE | 2022-07-30 19:19 | NUR ---
PICC NURSE AT BEDSIDE.
--- NOTE | 2022-07-30 19:19 | NUR ---
ENDORSED BEDSIDE REPORT TO [facility] IMAGING MANAGER RN, FOR CONTINUITY OF CARE.
[2022-07-30 19:31] LABS: PROTHROMBIN TIME 14.8 secs (10.8-13.4)
--- NOTE | 2022-07-30 19:45 | NUR ---
RECEIVED PT. FROM LUPIS FINLEY. PT. ON ETT TO VENT A/C PRVC RATE 16, FIO2 100%, TV 450, PEEP 10 AND O2 SAT 86%. BILATERAL LUNGS SOUND DIMINISHED. SINUS RHYTHM ON THE MONITOR. RECEIVED PT. WITH ON GOING CENTRAL LINE PLACEMENT TO RIGHT UPPER ARM. IV TO RIGHT AC 18G, INFUSING PROPOFOL DRIP 25 MCG/KG/MIN. IV TO LEFT AC 20G RUNNING FENTANYL DRIP AT 25MCG/HR. ALL IV SITE NO S/S OF INFILTRATION. IV SITE PATENT AND INTACT. NGT TO RIGHT NARE CLAMPED/NPO PER MD ORDERED. ABDOMINAL SOUNDS HYPOACTIVE. WITH MEDELLIN CATHETER TO GRAVITY, URINE COLOR YELLOW CLEAR. SKIN INTACT. ON BILATERAL SOFT WRIST RESTRAINT ORDERED. WRIST SITE NO S/S OF POOR CIRCULATION, NO S/S OF INJURY. REPOSITIONED AND PLACED IN COMFORTABLE POSITION. HOB TO 45 DEGREES TOLERATED. SAFETY MEASURES IN PLACE. NO S/S OF PAIN. WILL CONTINUE TO MONITOR.
--- NOTE | 2022-07-30 19:55 | NUR ---
CXR ORDERED TO VERIFY PLACEMENT OF RIGHT ARM PICC LINE. RESULT READ BY AMARILYSPICC LINE RN AND STATED OKAY TO USE THE RIGHT ARM PICC LINE. WILL ENDORSE TO THE NEXT SHIFT.
--- NOTE | 2022-07-30 20:38 | NUR ---
RECEIVED REPORT FROM AM SHIFT. PATIENT WAS SEEN AND ASSESSED. PATIENT IS INTUBATED AND SEDATED WITH ETT SIZE 7.5 AND SECURED WITH A BITING BLOCK ANCHOR-FAST 25cm @ TEETH. PATIENT IS ON VENTILATOR SUPPORT. VENT SETTINGS: AC/PRVC RR 16, VT 450, PEEP 10, FiO2 100% WITH SPO2 OF 82%. VENTILATOR PLUGGED IN RED OUTLET. VENTILATOR ALARMS SET APPROPRIATELY AND AUDIBLE TO ENVIRONMENT. AMBU BAG AT BEDSIDE. HEAD OF BED GREATER THAN 30 DEGREES. NOTICED ADEQUATE BILATERAL CHEST RISE AND FALL. PATIENT IS IN NO RESPIRATORY DISTRESS AT THIS TIME. SUCTIONED SMALL CLEAR/WHITE THIN SECRETIONS FROM ETT AND SMALL WHITE THIN ORALLY. BILATERAL BREATH SOUNDS ON AUSCULTATION; UPPER LOBES: COARSE CRACKLES LOWER LOBES: COARSE CRACKLES PEAK PRESSURE: 23 cmH20 WILL CONTINUE TO MONITOR PATIENT. WILL CONTINUE TO MONITOR PATIENT.
[2022-07-30] MEDS: DEXTROSE 50% 50 ML SYR IVP PRN (20:39)
--- NOTE | 2022-07-30 21:15 | NUR ---
PT. DAUGHTER, VIVEK HENDERSON CALLED AND GAVE A SPECIAL INSTRUCTION THAT ONLY FAMILY MEMBER ARE ALLOWED TO VISIT THE PATIENT. SHE PROVIDED A PASSWORD " [email or web address]" THAT THE FAMILY NEEDS TO GIVE IF THEY WANT TO COME VISIT OR IF THEY WILL CALL, TO PROVIDE THE PASSWORD. I MENTIONED TO VIVEK THAT THERE IS ONE PERSON CLAIMING THAT SHE'S A AND AT THE DOOR INSISTING TO COME IN. VIVEK STATED NOT TO LET HER IN. ACCORDING TO HER, PT. HAS NO . I TALKED TO THE LADY AT THE DOOR AND ASKED HER IF SHE CAN GIVE ME THE PASSWORD, BECAUSE VISITOR NEEDS TO GIVE THE PASSWORD, BUT SHE DID NOT KNOW THE PASSWORD. HOWEVER FAMILY OF THE PT. CAME TO VISIT AND PROVIDED US WITH THE PASSWORD. WILL ENDORSE TO THE NEXT SHIFT.
--- NOTE | 2022-07-30 21:43 | NUR ---
BLOOD SUGAR TAKEN AT 2038, RESULT 56. IVP DEXTROSE 50% GIVEN PRN AND RECHECKED BLOOD SUGAR AT THIS TIME WITH THE RESULT OF 151. WILL CONT. TO MONITOR.
[2022-07-30] MEDS ORDERED: NOREPINEPHRINE 4 MG/4 ML VIAL IV ONE (23:14)
--- NOTE | 2022-07-30 23:20 | NUR ---
PT DESATURATING IN LOW 70s. DR. PRETTY WAS NOTIFIED. PER DR. PRETTY INCRAESE PEEP TO 14 cmH20. CHANGES MADE TO VENT SETTINGS. SPO2 IMPROVED TO 80%. WILL CONTINUE TO MONITOR PT.
[2022-07-30] MEDS: NOREPINEPHRINE 4 MG in DEXTROSE 5% 250 ML IV PRN (23:32)
[2022-07-31] VITALS (14 sets, daily range): BP systolic 64–121; BP diastolic 19–77
[2022-07-31] MEDS: FUROSEMIDE 40 MG/4 ML VIAL IVP SCH ×2 (00:36→06:35)
[2022-07-31] MEDS: PROPOFOL 1000 MG/100 ML PREMIX 100 ML IV PRN ×2 (04:05→07:01)
--- NOTE | 2022-07-31 04:58 | NUR ---
LAB CAME AND DRAWN BLOOD FOR PT, PTT, CBC, BPM, MAG.
[2022-07-31 06:41] LABS: CARBON DIOXIDE 15.7 mmol/L (21-32); CREATININE 3.1 mg/dL (0.6-1.3)
[2022-07-31 06:59] LABS: ANION GAP 24.8 (8-16)
[2022-07-31 07:00] LABS: HEMATOCRIT 52.6 % (36-52); MEAN CORPUSCULAR HEMOGLOBIN 32 pg (27-31); MEAN CORPUSCULAR HGB CONC 32 g/dL (33-37); MEAN CORPUSCULAR VOLUME 98.4 fL (80-94); PLATELET COUNT (AUTO) 206 K/uL (140-450); RED BLOOD CELL COUNT(AUTO) 5.34 MIL/uL (4.20-6.10); RED CELL DISTRIBUTION WIDTH 16.5 % (11.6-13.7); WHITE BLOOD COUNT (AUTO) 15.9 K/uL (4.8-10.8)
[2022-07-31 07:01] LABS: PROTHROMBIN TIME 18.8 secs (10.8-13.4)
[2022-07-31 07:02] LABS: POTASSIUM 6.5 mmol/L (3.5-5.1)
--- NOTE | 2022-07-31 07:05 | NUR ---
ENDORSED PT. TO LUPIS FINLEY FOR CONTINUITY OF CARE.
--- NOTE | 2022-07-31 07:12 | NUR ---
[facility] CALLED; Tisha GILLETTE RCP ATTENDING; REMOVED FROM VENTILATOR AMBU BAG TO FLOW METER AT 15 LPM; BAG DEPRESSION EVERY SIX SECONDS
--- NOTE | 2022-07-31 07:19 | NUR ---
ROSC ACHIEVED; PATIENT PLACED BACK ON VENTILATOR
--- NOTE | 2022-07-31 07:20 | NUR ---
0712 PT IN PEA. COMPRESSIONS STARTED AND [facility] CALLED. 0720 ROSC OBTAINED. ORDERS RECEIVED BY ER PHYSICIAN Ariana JOHNSON
--- NOTE | 2022-07-31 07:28 | NUR ---
PT DAUGHTER, VIVEK, CALLED AND WAS UPDATED ON PT STATUS.
[2022-07-31] MEDS: DEXTROSE 50% 50 ML SYR IVP PRN (07:30)
[2022-07-31 08:00] LABS: LYMPHOCYTES % (MANUAL) 13 % (20-46); MONOCYTES % (MANUAL) 12 % (5-12)
[2022-07-31] MEDS: METOPROLOL SUCCINATE 50 MG TABER PO SCH (08:00)
--- NOTE | 2022-07-31 08:09 | NUR ---
[facility] CALLED; Tisha GILLETTE RCP ATTENDING; REMOVED FROM VENTILATOR; AMBU BAG AT 15 LPM; BAG DEPRESSION EVERY SIX SECONDS
[2022-07-31] MEDS ORDERED: AMIODARONE 150 MG in DEXTROSE 5% 100 ML IV SCH (08:10)
--- NOTE | 2022-07-31 08:11 | NUR ---
ROSC ACHIEVED; PATIENT PLACED BACK ON VENTILATOR
--- NOTE | 2022-07-31 08:11 | NUR ---
PT IN PEA. ONE ROUND OF CPR ADMINISTERED. ROSC OBTAINED AT 0811.
[2022-07-31] MEDS ORDERED: INSULIN REGULAR, HUMAN 100 UNIT/ML VIAL IV SCH (08:15)
[2022-07-31] MEDS ORDERED: CALCIUM GLUC 1 GM/50 mL NS BAG 50 ML IV SCH (08:15)
[2022-07-31] MEDS ORDERED: DEXTROSE 50% 50 ML SYR IVP SCH (08:15)
[2022-07-31] MEDS ORDERED: DOBUTamine 500 MG/D5W PREMIX 250 ML IV SCH (08:15)
[2022-07-31] MEDS ORDERED: SODIUM BICARBONATE 8.4% 100 MEQ in DEXTROSE 5% 1,000 ML IV SCH (08:15)
[2022-07-31] MEDS ORDERED: DOBUTamine 500 MG/D5W PREMIX 250 ML IV ONE (08:18)
--- NOTE | 2022-07-31 08:26 | NUR ---
PER Ariana JOHNSON, HOLD AMIODARONE FOR NOW DUE TO RISK OF BRADYCARDIA.
[2022-07-31] MEDS ORDERED: NOREPINEPHRINE 4 MG/4 ML VIAL IV ONE (08:29)
[2022-07-31] MEDS ORDERED: AMIODARONE 450 MG in DEXTROSE 5% 250 ML IV SCH (08:30)
[2022-07-31] MEDS: NOREPINEPHRINE 4 MG in DEXTROSE 5% 250 ML IV PRN (08:40)
--- NOTE | 2022-07-31 08:44 | NUR ---
CODE [facility] CALLED; REMOVED FROM VENTILATOR; AMBU BAG AT 15 LPM; BAG DEPRESSION EVERY SIX SECONDS
[2022-07-31] MEDS: BLOOD GLUCOSE MONITORING 1 DEV DEV FS SCH ×2 (08:45→11:30)
--- NOTE | 2022-07-31 08:48 | NUR ---
ROSC ACHIEVED; PATIENT PLACED BACK ON VENTILATOR
--- NOTE | 2022-07-31 08:48 | NUR ---
PT IN PEA. CALLED [facility] AT 0844. ROSC OBTAINED AT 0848.
[2022-07-31] MEDS ORDERED: EPINEPHrine 1 mg/mL 5 MG in DEXTROSE 5% 250 ML IV PRN (08:55)
[2022-07-31] MEDS: ATORVASTATIN 20 MG TAB PO SCH (09:00)
[2022-07-31] MEDS: ASPIRIN 81 MG TAB.CHEW PO SCH (09:00)
--- NOTE | 2022-07-31 09:07 | NUR ---
PT IN PEA. [facility] CALLED. DAUGHTER, VIVEK, UPDATED AT BEDSIDE. ROSC OBTAINED AT 0937.
--- NOTE | 2022-07-31 09:07 | NUR ---
[facility] CALLED; Tisha GILLETTE RCP ATTENDING; REMOVED FROM VENTILATOR; AMBU BAG AT 15 LPM; BAG DEPRESSION EVERY SIX SECONDS
--- NOTE | 2022-07-31 09:20 | NUR ---
JESI FLORES CALLED; NOEL DIXON ATTENDING; REMOVED FROM VENTILATOR; AMBU BAG AT 15 LPM; BAG DEPRESSION EVERY SIX SECONDS Addendum: 07/31/22 at 1710 by Abad Birmingham RT NOEL = SIMON
--- NOTE | 2022-07-31 09:35 | NUR ---
AT 0920 PT BECAME BRADYCARDIC AND IN PEA. [facility] CALLED. FAMILY UPDATED AGAIN AT BEDSIDE. PT AT 0935. DR. PRETTY AND DR. VERMA UPDATED.
--- NOTE | 2022-07-31 09:35 | NUR ---
CARDIAC ULTRASOUNDS BY DR. DARLENE TIWARI; ERMD CALLED CODE AT THIS TIME; FAMILY NEAR BEDSIDE
--- NOTE | 2022-07-31 09:36 | NUR ---
ROSC ACHIEVED; PATIENT PLACED BACK ON VENTILATOR Addendum: 07/31/22 at 1711 by Abad Birmingham RT ACTUAL TIME FOR ROSC ON OR ABOUT 927
--- NOTE | 2022-07-31 09:44 | NUR ---
CALLED [facility]. ID #[id number]. AWAITING RETURN PHONE CALL.
--- NOTE | 2022-07-31 09:55 | NUR ---
PHONE CALL TO FOUNDER AND CHIEF TECHNICAL OFFICER'S OFFICE. [phone]. AWAITING RETURN PHONE CALL.
--- NOTE | 2022-07-31 10:22 | NUR ---
WEB PRODUCTION ASSISTANT, ORLIN SIMMONS, CALLED BACK AND RELEASED BODY.
--- NOTE | 2022-07-31 12:20 | NUR ---
[facility] STATED THEY WILL PURSUE ORGAN/TISSUE DONATION. THEY STATED THEY WILL FOLLOW UP AFTER PT IS TRANSFERRED TO [facility] IN [place].
--- NOTE | 2022-07-31 12:41 | NUR ---
ETT AND LINES REMOVED. BODY CLEANED AND PLACED IN BODY BAG.
--- NOTE | 2022-07-31 15:20 | NUR ---
BODY PICKED UP BY [employer]. FAMILY UPDATED AT BEDSIDE.
== END 2022-07-31 15:20 | DRG 133 ==
LOC: MED 00:14 → MTU 05:57 → MIC 07:52
PROVIDERS: ADMIT Family Medicine; ATTEND Family Medicine
PROC: 5A1935Z Respiratory Ventilation, Less than 24 Consecutive Hours (ICD-10-PCS; 2022-07-30)
PROC: 5A2204Z Restoration of Cardiac Rhythm, Single (ICD-10-PCS; 2022-07-30)
PROC: 0BH17EZ Insertion of Endotracheal Airway into Trachea, Via Natural or Artificial Opening (ICD-10-PCS; 2022-07-30)
PROC: 02HV33Z Insertion of Infusion Device into Superior Vena Cava, Percutaneous Approach (ICD-10-PCS; 2022-07-30)
PROC: B548ZZA Ultrasonography of Superior Vena Cava, Guidance (ICD-10-PCS; 2022-07-30)
PROC: 5A12012 Performance of Cardiac Output, Single, Manual (ICD-10-PCS; principal; 2022-07-31)
DX: J96.01 Acute respiratory failure with hypoxia (principal); I46.9 Cardiac arrest, cause unspecified; N17.0 Acute kidney failure with tubular necrosis; E44.1 Mild protein-calorie malnutrition; G93.41 Metabolic encephalopathy; I50.43 Acute on chronic combined systolic (congestive) and diastolic (congestive) heart failure; I11.0 Hypertensive heart disease with heart failure; K21.9 Gastro-esophageal reflux disease without esophagitis; R74.01 Elevation of levels of liver transaminase levels; F15.10 Other stimulant abuse, uncomplicated; Z20.822 Contact with and (suspected) exposure to COVID-19; I47.1 Supraventricular tachycardia; E11.9 Type 2 diabetes mellitus without complications; Z79.82 Long term (current) use of aspirin; Z79.899 Other long term (current) drug therapy; Z68.30 Body mass index [BMI] 30.0-30.9, adult; Z91.14 Patient's other noncompliance with medication regimen; I21.A1 Myocardial infarction type 2
CPT/HCPCS: 36415; 36600; 71045; 80048; 80053; 82803; 82948; 83735; 83880; 84100; 84443; 84484; 85025; 85610; 85730; 87081; 93005; 94003; 94640; 94660; 96361; 96365; 96375; 99291; J0153; J0171; J0282; J0610; J1644; J1815; J1940; J2250; J2704; J3010; J3475; J3490; J7060; J7613; Q0092